=== PATIENT | female | born 1960 | race African-American/Black ===

== ENCOUNTER 2019-07-11 16:33 | Inpatient (IN) ==
[2019-07-11] MEDS ORDERED: 0.9 % Sodium Chloride 500 ML IVC ONE ×2 (16:49→19:43)
[2019-07-11] MEDS ORDERED: 0.9 % Sodium Chloride 500 ML ONE (16:50)
[2019-07-11] MEDS ORDERED: Piperacillin/Tazobactam 3.375 GM in 0.9 % Sodium Chloride Mini Bag 100 ML IVPB ONE (16:53)
--- NOTE | 2019-07-11 17:03 | Emergency Department Note ---
Disposition Clinical Impression: ESRD on dialysis Sepsis Qualifiers: Sepsis type: sepsis due to unspecified organism Sepsis acute organ dysfunction status: unspecified Qualified Code(s): A41.9 - Sepsis, unspecified organism Diabetes mellitus Qualifiers: Diabetes mellitus type: type 2 Diabetes mellitus predatory animal exterminator insulin use: without correction use Diabetes mellitus complication status: with other specified complication Qualified Code(s): E11.69 - Type 2 diabetes mellitus with other specified complication Disposition: Admitted As Inpatient Referrals: NONE,PCP [Primary Care Provider] - Forms: ED Satisfaction Letter Time of Disposition: 21:07 General Adult HPI - General Chief complaint: ED Fever Stated complaint: Infection Time Seen by Provider: 07/11/19 16:47 Source: patient, EMS Mode of arrival: EMS Limitations: no limitations Nursing Notes Reviewed: Yes Vital Signs Reviewed: Yes - History of Present Illness HPI Narrative: 59F with PMHx of DM, HTN and ESRD on dialysis presents from dialysis with general illness and fever after completing dialysis. Patient states she generally does not feel well but cannot describe any symptoms that she is having. She is reported to have a fever of 104 at dialysis today. Patient states that she does make urine and has not had any dysuria or abdominal pain. She denies cough and chest pain as well as dyspnea. She has not been feeling well since Sunday. Pain Scale: 0 - Related Data Home Medications Medication Instructions Recorded Confirmed Atorvastatin 20 mg PO HS 07/11/19 07/11/19 Levothyroxine 50 mcg PO DAILY 07/11/19 07/11/19 Linzess 290 mcg PO DAILY 07/11/19 07/11/19 Metoprolol Succinate 25 mg PO DAILY 07/11/19 07/11/19 Topiramate 25 mg PO BID 07/11/19 07/11/19 Tramadol HCl 50 mg PO Q8HR PRN 07/11/19 07/11/19 amLODIPine 5 mg PO DAILY 07/11/19 07/11/19 Allergies Allergy/AdvReac Type Severity Reaction Status Date / Time No Known Allergies Allergy Verified 06/23/19 06:10 All systems ED: reviewed and negative except as stated. Review of Systems: As Per HPI Constitutional: Reports: fever, weakness. Denies: chills Cardiovascular: Denies: chest pain, palpitations, dyspnea on exertion Respiratory: Denies: cough, dyspnea, wheezes Gastrointestinal: Denies: abdominal pain, nausea, vomiting Genitourinary: Denies: dysuria Musculoskeletal: Denies: back pain Neurological: Denies: headache Endocrine: Reports: fatigue Past Medical History - Past Medical History Attestation: Yes The following information was validated with the patient. Source: patient Medical history: Reports: diabetes, hyperlipidemia, hypertension, renal disease, thyroid disease Psychiatric history: Reports: no psych history - Social History Smoking Status: Never smoker Smokeless Tobacco Status: No Alcohol use: Reports: none Drug use: Reports: none Physical Exam - General Limitations: no limitations General appearance: alert, in no apparent distress, other (somnolent) - Head Head exam: atraumatic, normocephalic - Eye Eye exam: Present: normal appearance, EOMI - Chest Chest inspection: Present: normal inspection, other (dialysis catheter without signs of infection). Absent: tenderness, rash - Respiratory Respiratory exam: Present: normal lung sounds bilaterally. Absent: wheezes - Cardiovascular Cardiovascular exam: Present: normal rhythm, tachycardia - Abdominal Exam Abdominal exam: Present: soft, Non-Tender. Absent: distention, guarding, rebound, rigidity - Extremities Exam Extremities exam: Present: normal inspection. Absent: tenderness, pedal edema - Neurological Exam Neurological exam: Present: alert, oriented X3, other (somnolent) - Psychiatric Psychiatric exam: Present: flat affect - Skin Skin exam: Present: warm, dry, intact Course Vital Signs Temperature 103.3 F H 07/11/19 16:35 Pulse Rate 143 07/11/19 16:35 Respiratory Rate 20 07/11/19 16:35 Blood Pressure 139/92 07/11/19 16:35 O2 Sat by Pulse Oximetry 100 07/11/19 16:35 Temperature 102.3 F H 07/11/19 17:57 Pulse Rate 99 07/11/19 19:57 Respiratory Rate 18 07/11/19 18:32 Blood Pressure 113/77 07/11/19 19:57 O2 Sat by Pulse Oximetry 100 07/11/19 19:57 Oxygen Delivery Oxygen Delivery Room Air Medical Decision Making - MDM Narrative Medical decision making narrative: Patient presents from dialysis with a fever. Sutures criteria were met and we will obtain a septic labs, chest x-ray is and his blood cultures from both peripheral veins and her dialysis catheter. Patient will be started on Bactrim antibiotics and a 500 mL fluid bolus. We will also obtain a flu swab on this patient. 1999 - Pts labs show a mild leukocytosis and lactic acidosis. CXR does not show any acute abnormalities. Awaiting urinalysis at this time. Pt is still febrile and motrin was ordered along with another 500mL bolus. 2019 - pts urine does not show signs of infection. We will admit her for further treatment of her sepsis. 2100 - pt has been accepted by the hospitalist Dr. Rhodes for admission to the hospital. - Medical Records Medical records reviewed: Yes I reviewed the patient's medical records. - Lab Data Lab results reviewed: Yes I reviewed the patient's lab results. Result diagrams: 07/11/19 16:55 07/11/19 16:55 Lab Results 07/11/19 07/11/19 07/11/19 Range/Units 16:55 16:55 16:55 WBC 12.4 H (4.3-11.1) K/mcL RBC 3.61 L (3.82-4.97) M/mcL Hgb 10.9 L (11.5-15.4) g/dL Hct 34.0 L (35.3-44.9) % MCV 94.2 (83.0-100.0) fL MCH 30.2 (28.0-33.3) pg MCHC 32.1 (31.6-35.5) g/dL RDW 16.4 H (11.5-14.5) % Plt Count 121 L (140-400) K/mcL MPV 10.7 (9.4-12.4) fL Immature Gran % 0.5 (0-4) % Seg Neutrophils % 84.1 % Lymphocytes % 8.1 % Monocytes % 6.8 % Eosinophils % 0.3 % Basophils % 0.2 % Neutrophils # 10.4 H (1.6-8.9) K/mcL Lymphocytes # 1.0 (0.6-4.6) K/mcL Monocytes # 0.8 (0.0-1.3) K/mcL Eosinophils # 0.0 (0.0-0.6) K/mcL Basophils # 0.0 (0.0-0.2) K/mcL PT 12.7 H (9.4-12.1) Seconds INR 1.1 Sodium 134 L (136-145) mEq/L Potassium 4.2 (3.5-5.1) mEq/L Chloride 95 L (98-107) mEq/L Carbon Dioxide 24 (23-29) mEq/L BUN 13 (8-23) mg/dL Creatinine 4.30 H (0.60-1.20) mg/dL Est GFR ( Amer) 13 L (> 60) Est GFR (Non-Af Amer) 10 L (> 60) BUN/Creatinine Ratio 3 L (6-26) Glucose 215 H (70-105) mg/dL Calculated Osmolality 285 (280-300) Lactic Acid (0.5-2.2) mmol/L Calcium 9.1 (8.6-10.3) mg/dL Phosphorus 2.4 L (2.7-4.5) mg/dL Magnesium 1.6 (1.6-2.6) mg/dL Total Bilirubin 0.5 (0.3-1.0) mg/dL Direct Bilirubin 0.0 (0.0-0.2) mg/dL Indirect Bilirubin 0.5 (0.0-1.2) mg/dL AST 21 (13-39) Units/L ALT 15 (7-52) Units/L Alkaline Phosphatase 51 (34-104) Units/L Troponin I < 0.03 (< 0.04) ng/mL Serum Total Protein 8.1 (6.4-8.9) g/dL Albumin 4.3 (3.5-5.7) g/dL Globulin 3.8 H (2.4-3.5) g/dL Albumin/Globulin Ratio 1.1 (1.1-2.2) Urine Color (Yellow) Urine Clarity (Clear) Urine pH (5.0-8.0) pH Units Ur Specific [place] (1.010-1.025) Urine Protein (Neg-Trace) mg/dL Urine Glucose (UA) (Normal) mg/dL Urine Ketones (Negative) mg/dL Urine Blood (Negative) Urine Nitrite (Negative) Urine Bilirubin (Negative) Urine Urobilinogen (Normal) mg/dL Ur Leukocyte Esterase (Negative) Urine Microscopic RBC (0-3) per hpf Urine Microscopic WBC (0-3) per hpf Ur Squamous Epith Cells (None-Few) per lpf Urine Bacteria (None-Few) per hpf Hyaline Casts (None-Few) per lpf Ur Culture Indicated? (NO) 07/11/19 07/11/19 Range/Units 16:55 20:02 WBC (4.3-11.1) K/mcL RBC (3.82-4.97) M/mcL Hgb (11.5-15.4) g/dL Hct (35.3-44.9) % MCV (83.0-100.0) fL MCH (28.0-33.3) pg MCHC (31.6-35.5) g/dL RDW (11.5-14.5) % Plt Count (140-400) K/mcL MPV (9.4-12.4) fL Immature Gran % (0-4) % Seg Neutrophils % % Lymphocytes % % Monocytes % % Eosinophils % % Basophils % % Neutrophils # (1.6-8.9) K/mcL Lymphocytes # (0.6-4.6) K/mcL Monocytes # (0.0-1.3) K/mcL Eosinophils # (0.0-0.6) K/mcL Basophils # (0.0-0.2) K/mcL PT (9.4-12.1) Seconds INR Sodium (136-145) mEq/L Potassium (3.5-5.1) mEq/L Chloride (98-107) mEq/L Carbon Dioxide (23-29) mEq/L BUN (8-23) mg/dL Creatinine (0.60-1.20) mg/dL Est GFR ( Amer) (> 60) Est GFR (Non-Af Amer) (> 60) BUN/Creatinine Ratio (6-26) Glucose (70-105) mg/dL Calculated Osmolality (280-300) Lactic Acid 2.8 H (0.5-2.2) mmol/L Calcium (8.6-10.3) mg/dL Phosphorus (2.7-4.5) mg/dL Magnesium (1.6-2.6) mg/dL Total Bilirubin (0.3-1.0) mg/dL Direct Bilirubin (0.0-0.2) mg/dL Indirect Bilirubin (0.0-1.2) mg/dL AST (13-39) Units/L ALT (7-52) Units/L Alkaline Phosphatase (34-104) Units/L Troponin I (< 0.04) ng/mL Serum Total Protein (6.4-8.9) g/dL Albumin (3.5-5.7) g/dL Globulin (2.4-3.5) g/dL Albumin/Globulin Ratio (1.1-2.2) Urine Color Yellow (Yellow) Urine Clarity Clear (Clear) Urine pH 7.5 (5.0-8.0) pH Units Ur Specific [place] 1.014 (1.010-1.025) Urine Protein >=300 H (Neg-Trace) mg/dL Urine Glucose (UA) 250 H (Normal) mg/dL Urine Ketones Negative (Negative) mg/dL Urine Blood Trace H (Negative) Urine Nitrite Negative (Negative) Urine Bilirubin Negative (Negative) Urine Urobilinogen Normal (Normal) mg/dL Ur Leukocyte Esterase Negative (Negative) Urine Microscopic RBC 0-3 (0-3) per hpf Urine Microscopic WBC 0-3 (0-3) per hpf Ur Squamous Epith Cells Many H (None-Few) per lpf Urine Bacteria None Seen (None-Few) per hpf Hyaline Casts None Seen (None-Few) per lpf Ur Culture Indicated? NO (NO) - Radiology Data Radiology results reviewed: Yes I reviewed the patient's radiology results. - EKG Data EKG #1 EKG attestation: Yes I reviewed and interpreted this EKG. EKG results narrative: EKG obtained at 1649 on 07/11/2019 Heart rate 143 beats per minute, AK interval 143, QRS duration 77, QT 271, QTC 420 Sinus tachycardia without any ST segment elevations or depressions. There is baseline wander in several leads. No other acute abnormalities on this EKG. No old EKG for comparison at this time.
[2019-07-11 17:15] LABS: Basophils % 0.2 %; Eosinophils % 0.3 %; Hemoglobin 10.9 g/dL (11.5-15.4); Immature Granulocytes % 0.5 % (0-4); Lymphocytes % 8.1 %; Mean Corpuscular HGB Conc 32.1 g/dL (31.6-35.5); Mean Corpuscular Hemoglobin 30.2 pg (28.0-33.3); Mean Corpuscular Volume 94.2 fL (83.0-100.0); Mean Platelet Volume 10.7 fL (9.4-12.4); Monocytes # 0.8 K/mcL (0.0-1.3); Monocytes % 6.8 %; Neutrophils # 10.4 K/mcL (1.6-8.9); Platelet Count 121 K/mcL (140-400); Red Blood Count 3.61 M/mcL (3.82-4.97); Red Cell Distribution Width 16.4 % (11.5-14.5); Segmented Neutrophils % 84.1 %; White Blood Count 12.4 K/mcL (4.3-11.1)
[2019-07-11 17:25] LABS: INR 1.1; Prothrombin Time 12.7 Seconds (9.4-12.1)
[2019-07-11 17:40] LABS: Alanine Aminotransferase 15 Units/L (7-52); Albumin 4.3 g/dL (3.5-5.7); Albumin/Globulin Ratio 1.1 (1.1-2.2); Alkaline Phosphatase 51 Units/L (34-104); Aspartate Amino Transferase 21 Units/L (13-39); BUN/Creatinine Ratio 3 (6-26); Bilirubin,Indirect 0.5 mg/dL (0.0-1.2); Bilirubin,Total 0.5 mg/dL (0.3-1.0); Blood Urea Nitrogen 13 mg/dL (8-23); Calcium 9.1 mg/dL (8.6-10.3); Carbon Dioxide 24 mEq/L (23-29); Chloride 95 mEq/L (98-107); Globulin 3.8 g/dL (2.4-3.5); Glucose 215 mg/dL (70-105); Magnesium 1.6 mg/dL (1.6-2.6); Osmolality,Calculated 285 (280-300); Phosphorous 2.4 mg/dL (2.7-4.5); Potassium 4.2 mEq/L (3.5-5.1); Sodium 134 mEq/L (136-145); Total Protein 8.1 g/dL (6.4-8.9); Troponin I < 0.03 ng/mL (< 0.04); eGFR For African Americans 13 (> 60); eGFR For Non-African Americans 10 (> 60)
[2019-07-11] MEDS ORDERED: Morphine Sulfate 2 MG/ML SYRINGE IVP ONE (18:01)
--- NOTE | 2019-07-11 19:06 | Emergency Department Note ---
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 Diabetes mellitus complication status: with other specified complication Qualified Code(s): E11.69 - Type 2 diabetes mellitus with other specified complication Disposition: Admitted As Inpatient Time of Disposition: 21:07 General Adult HPI - General Chief complaint: ED Fever Stated complaint: Infection Time Seen by Provider: 07/11/19 16:47 Source: patient, EMS Mode of arrival: EMS Limitations: no limitations - History of Present Illness Pain Scale: 0 - Related Data Home Medications Medication Instructions Recorded Confirmed Atorvastatin Calcium [Lipitor] 20 mg PO DAILY 07/12/19 07/12/19 B Complex W-C No.20/Folic Acid 1 mg PO MOWEFR 07/12/19 07/12/19 [Virt-Caps Softgel] Calcitriol [Rocaltrol] 0.25 mcg PO DAILY 07/12/19 07/12/19 Glucagon,Human Recombinant 1 mg IM ONCE PRN 07/12/19 07/12/19 [Glucagen] Insulin LISPRO [Humalog Kwikpen 0 unit SQ TIDWM PRN 07/12/19 07/12/19 U-100] Levothyroxine [Synthroid] 50 mcg PO QAM 07/12/19 07/12/19 Linaclotide [Linzess] 290 mcg PO DAILY 07/12/19 07/12/19 Metoprolol Succinate [Toprol Xl] 25 mg PO DAILY 07/12/19 07/12/19 Topiramate [Topamax] 25 mg PO Q12H 07/12/19 07/12/19 Tramadol HCl [Ultram] 50 mg PO Q8H PRN 07/12/19 07/12/19 amLODIPine [Norvasc] 5 mg PO DAILY 07/12/19 07/12/19 Allergies Allergy/AdvReac Type Severity Reaction Status Date / Time No Known Allergies Allergy Verified 06/23/19 06:10 Constitutional: Reports: fever, weakness. Denies: chills Cardiovascular: Denies: chest pain, palpitations, dyspnea on exertion Respiratory: Denies: cough, dyspnea, wheezes Gastrointestinal: Denies: abdominal pain, nausea, vomiting Genitourinary: Denies: dysuria Musculoskeletal: Denies: back pain Neurological: Denies: headache Endocrine: Reports: fatigue Past Medical History - Past Medical History Medical history: Reports: diabetes, hyperlipidemia, hypertension, renal disease, thyroid disease Psychiatric history: Reports: no psych history - Social History Smoking Status: Never smoker Smokeless Tobacco Status: No Alcohol use: Reports: none Drug use: Reports: none Physical Exam - General Limitations: no limitations General appearance: alert, in no apparent distress, other (somnolent) Course Vital Signs Temperature 103.3 F H 07/11/19 16:35 Pulse Rate 143 07/11/19 16:35 Respiratory Rate 20 07/11/19 16:35 Blood Pressure 139/92 07/11/19 16:35 O2 Sat by Pulse Oximetry 100 07/11/19 16:35 Temperature 102.9 F H 07/12/19 18:58 Pulse Rate 151 07/12/19 18:40 Respiratory Rate 34 07/12/19 18:40 Blood Pressure 155/86 07/12/19 18:40 O2 Sat by Pulse Oximetry 98 07/12/19 18:40 Oxygen Delivery Oxygen Delivery Room Air Medical Decision Making - Lab Data Result diagrams: 07/12/19 03:10 07/12/19 03:10 Lab Results 07/11/19 07/11/19 07/11/19 Range/Units 16:55 16:55 16:55 WBC 12.4 H (4.3-11.1) K/mcL RBC 3.61 L (3.82-4.97) M/mcL Hgb 10.9 L (11.5-15.4) g/dL Hct 34.0 L (35.3-44.9) % MCV 94.2 (83.0-100.0) fL MCH 30.2 (28.0-33.3) pg MCHC 32.1 (31.6-35.5) g/dL RDW 16.4 H (11.5-14.5) % Plt Count 121 L (140-400) K/mcL MPV 10.7 (9.4-12.4) fL Immature Gran % 0.5 (0-4) % Seg Neutrophils % 84.1 % Lymphocytes % 8.1 % Monocytes % 6.8 % Eosinophils % 0.3 % Basophils % 0.2 % Neutrophils # 10.4 H (1.6-8.9) K/mcL Lymphocytes # 1.0 (0.6-4.6) K/mcL Monocytes # 0.8 (0.0-1.3) K/mcL Eosinophils # 0.0 (0.0-0.6) K/mcL Basophils # 0.0 (0.0-0.2) K/mcL PT 12.7 H (9.4-12.1) Seconds INR 1.1 Sodium 134 L (136-145) mEq/L Potassium 4.2 (3.5-5.1) mEq/L Chloride 95 L (98-107) mEq/L Carbon Dioxide 24 (23-29) mEq/L BUN 13 (8-23) mg/dL Creatinine 4.30 H (0.60-1.20) mg/dL Est GFR ( Amer) 13 L (> 60) Est GFR (Non-Af Amer) 10 L (> 60) BUN/Creatinine Ratio 3 L (6-26) Glucose 215 H (70-105) mg/dL Calculated Osmolality 285 (280-300) Lactic Acid (0.5-2.2) mmol/L Calcium 9.1 (8.6-10.3) mg/dL Phosphorus 2.4 L (2.7-4.5) mg/dL Magnesium 1.6 (1.6-2.6) mg/dL Total Bilirubin 0.5 (0.3-1.0) mg/dL Direct Bilirubin 0.0 (0.0-0.2) mg/dL Indirect Bilirubin 0.5 (0.0-1.2) mg/dL AST 21 (13-39) Units/L ALT 15 (7-52) Units/L Alkaline Phosphatase 51 (34-104) Units/L Troponin I < 0.03 (< 0.04) ng/mL Serum Total Protein 8.1 (6.4-8.9) g/dL Albumin 4.3 (3.5-5.7) g/dL Globulin 3.8 H (2.4-3.5) g/dL Albumin/Globulin Ratio 1.1 (1.1-2.2) Urine Color (Yellow) Urine Clarity (Clear) Urine pH (5.0-8.0) pH Units Ur Specific [place] (1.010-1.025) Urine Protein (Neg-Trace) mg/dL Urine Glucose (UA) (Normal) mg/dL Urine Ketones (Negative) mg/dL Urine Blood (Negative) Urine Nitrite (Negative) Urine Bilirubin (Negative) Urine Urobilinogen (Normal) mg/dL Ur Leukocyte Esterase (Negative) Urine Microscopic RBC (0-3) per hpf Urine Microscopic WBC (0-3) per hpf Ur Squamous Epith Cells (None-Few) per lpf Urine Bacteria (None-Few) per hpf Hyaline Casts (None-Few) per lpf Ur Culture Indicated? (NO) A. baumannii (PCR) (Not Detect) Cristiana albicans (PCR) (Not Detect) C. glabrata (PCR) (Not Detect) C. krusei (PCR) (Not Detect) C. parapsilosis (PCR) (Not Detect) C. tropicalis (PCR) (Not Detect) Enterobacteriac sp PCR (Not Detect) E. cloacae complex PCR (Not Detect) Enterococcus sp PCR (Not Detect) E. coli (PCR) (Not Detect) H. influenzae (PCR) (Not Detect) Klebsiella oxytoca PCR (Not Detect) Klebsiella pneumoniae (Not Detect) List. monocytogenes PCR (Not Detect) N. meningitidis (PCR) (Not Detect) Proteus species (PCR) (Not Detect) Serratia marcescens PCR (Not Detect) Staphylococcus sp PCR (Not Detect) Staph aureus (PCR) (Not Detect) mecA-Methicil Res Gene (Not Detect) Streptococcus sp PCR (Not Detect) Group A Strep DNA (Not Detect) Group B Strep (PCR) (Not Detect) Strep pneumoniae (PCR) (Not Detect) P. aeruginosa (PCR) (Not Detect) [place]/B-Vanco Res Genes (Not Detect) KPC (blaKPC) Detect PCR (Not Detect) 07/11/19 07/11/19 07/11/19 Range/Units 16:55 16:55 20:02 WBC (4.3-11.1) K/mcL RBC (3.82-4.97) M/mcL Hgb (11.5-15.4) g/dL Hct (35.3-44.9) % MCV (83.0-100.0) fL MCH (28.0-33.3) pg MCHC (31.6-35.5) g/dL RDW (11.5-14.5) % Plt Count (140-400) K/mcL MPV (9.4-12.4) fL Immature Gran % (0-4) % Seg Neutrophils % % Lymphocytes % % Monocytes % % Eosinophils % % Basophils % % Neutrophils # (1.6-8.9) K/mcL Lymphocytes # (0.6-4.6) K/mcL Monocytes # (0.0-1.3) K/mcL Eosinophils # (0.0-0.6) K/mcL Basophils # (0.0-0.2) K/mcL PT (9.4-12.1) Seconds INR Sodium (136-145) mEq/L Potassium (3.5-5.1) mEq/L Chloride (98-107) mEq/L Carbon Dioxide (23-29) mEq/L BUN (8-23) mg/dL Creatinine (0.60-1.20) mg/dL Est GFR ( Amer) (> 60) Est GFR (Non-Af Amer) (> 60) BUN/Creatinine Ratio (6-26) Glucose (70-105) mg/dL Calculated Osmolality (280-300) Lactic Acid 2.8 H (0.5-2.2) mmol/L Calcium (8.6-10.3) mg/dL Phosphorus (2.7-4.5) mg/dL Magnesium (1.6-2.6) mg/dL Total Bilirubin (0.3-1.0) mg/dL Direct Bilirubin (0.0-0.2) mg/dL Indirect Bilirubin (0.0-1.2) mg/dL AST (13-39) Units/L ALT (7-52) Units/L Alkaline Phosphatase (34-104) Units/L Troponin I (< 0.04) ng/mL Serum Total Protein (6.4-8.9) g/dL Albumin (3.5-5.7) g/dL Globulin (2.4-3.5) g/dL Albumin/Globulin Ratio (1.1-2.2) Urine Color Yellow (Yellow) Urine Clarity Clear (Clear) Urine pH 7.5 (5.0-8.0) pH Units Ur Specific [place] 1.014 (1.010-1.025) Urine Protein >=300 H (Neg-Trace) mg/dL Urine Glucose (UA) 250 H (Normal) mg/dL Urine Ketones Negative (Negative) mg/dL Urine Blood Trace H (Negative) Urine Nitrite Negative (Negative) Urine Bilirubin Negative (Negative) Urine Urobilinogen Normal (Normal) mg/dL Ur Leukocyte Esterase Negative (Negative) Urine Microscopic RBC 0-3 (0-3) per hpf Urine Microscopic WBC 0-3 (0-3) per hpf Ur Squamous Epith Cells Many H (None-Few) per lpf Urine Bacteria None Seen (None-Few) per hpf Hyaline Casts None Seen (None-Few) per lpf Ur Culture Indicated? NO (NO) A. baumannii (PCR) Not Detected (Not Detect) Cristiana albicans (PCR) Not Detected (Not Detect) C. glabrata (PCR) Not Detected (Not Detect) C. krusei (PCR) Not Detected (Not Detect) C. parapsilosis (PCR) Not Detected (Not Detect) C. tropicalis (PCR) Not Detected (Not Detect) Enterobacteriac sp PCR Not Detected (Not Detect) E. cloacae complex PCR Not Detected (Not Detect) Enterococcus sp PCR Not Detected (Not Detect) E. coli (PCR) Not Detected (Not Detect) H. influenzae (PCR) Not Detected (Not Detect) Klebsiella oxytoca PCR Not Detected (Not Detect) Klebsiella pneumoniae Not Detected (Not Detect) List. monocytogenes PCR Not Detected (Not Detect) N. meningitidis (PCR) Not Detected (Not Detect) Proteus species (PCR) Not Detected (Not Detect) Serratia marcescens PCR Not Detected (Not Detect) Staphylococcus sp PCR DETECTED A (Not Detect) Staph aureus (PCR) Not Detected (Not Detect) mecA-Methicil Res Gene Not Detected (Not Detect) Streptococcus sp PCR Not Detected (Not Detect) Group A Strep DNA Not Detected (Not Detect) Group B Strep (PCR) Not Detected (Not Detect) Strep pneumoniae (PCR) Not Detected (Not Detect) P. aeruginosa (PCR) Not Detected (Not Detect) [place]/B-Vanco Res Genes N/A (Not Detect) KPC (blaKPC) Detect PCR N/A (Not Detect) 07/11/19 Range/Units 21:08 WBC (4.3-11.1) K/mcL RBC (3.82-4.97) M/mcL Hgb (11.5-15.4) g/dL Hct (35.3-44.9) % MCV (83.0-100.0) fL MCH (28.0-33.3) pg MCHC (31.6-35.5) g/dL RDW (11.5-14.5) % Plt Count (140-400) K/mcL MPV (9.4-12.4) fL Immature Gran % (0-4) % Seg Neutrophils % % Lymphocytes % % Monocytes % % Eosinophils % % Basophils % % Neutrophils # (1.6-8.9) K/mcL Lymphocytes # (0.6-4.6) K/mcL Monocytes # (0.0-1.3) K/mcL Eosinophils # (0.0-0.6) K/mcL Basophils # (0.0-0.2) K/mcL PT (9.4-12.1) Seconds INR Sodium (136-145) mEq/L Potassium (3.5-5.1) mEq/L Chloride (98-107) mEq/L Carbon Dioxide (23-29) mEq/L BUN (8-23) mg/dL Creatinine (0.60-1.20) mg/dL Est GFR ( Amer) (> 60) Est GFR (Non-Af Amer) (> 60) BUN/Creatinine Ratio (6-26) Glucose (70-105) mg/dL Calculated Osmolality (280-300) Lactic Acid 1.1 (0.5-2.2) mmol/L Calcium (8.6-10.3) mg/dL Phosphorus (2.7-4.5) mg/dL Magnesium (1.6-2.6) mg/dL Total Bilirubin (0.3-1.0) mg/dL Direct Bilirubin (0.0-0.2) mg/dL Indirect Bilirubin (0.0-1.2) mg/dL AST (13-39) Units/L ALT (7-52) Units/L Alkaline Phosphatase (34-104) Units/L Troponin I (< 0.04) ng/mL Serum Total Protein (6.4-8.9) g/dL Albumin (3.5-5.7) g/dL Globulin (2.4-3.5) g/dL Albumin/Globulin Ratio (1.1-2.2) Urine Color (Yellow) Urine Clarity (Clear) Urine pH (5.0-8.0) pH Units Ur Specific [place] (1.010-1.025) Urine Protein (Neg-Trace) mg/dL Urine Glucose (UA) (Normal) mg/dL Urine Ketones (Negative) mg/dL Urine Blood (Negative) Urine Nitrite (Negative) Urine Bilirubin (Negative) Urine Urobilinogen (Normal) mg/dL Ur Leukocyte Esterase (Negative) Urine Microscopic RBC (0-3) per hpf Urine Microscopic WBC (0-3) per hpf Ur Squamous Epith Cells (None-Few) per lpf Urine Bacteria (None-Few) per hpf Hyaline Casts (None-Few) per lpf Ur Culture Indicated? (NO) A. baumannii (PCR) (Not Detect) Cristiana albicans (PCR) (Not Detect) C. glabrata (PCR) (Not Detect) C. krusei (PCR) (Not Detect) C. parapsilosis (PCR) (Not Detect) C. tropicalis (PCR) (Not Detect) Enterobacteriac sp PCR (Not Detect) E. cloacae complex PCR (Not Detect) Enterococcus sp PCR (Not Detect) E. coli (PCR) (Not Detect) H. influenzae (PCR) (Not Detect) Klebsiella oxytoca PCR (Not Detect) Klebsiella pneumoniae (Not Detect) List. monocytogenes PCR (Not Detect) N. meningitidis (PCR) (Not Detect) Proteus species (PCR) (Not Detect) Serratia marcescens PCR (Not Detect) Staphylococcus sp PCR (Not Detect) Staph aureus (PCR) (Not Detect) mecA-Methicil Res Gene (Not Detect) Streptococcus sp PCR (Not Detect) Group A Strep DNA (Not Detect) Group B Strep (PCR) (Not Detect) Strep pneumoniae (PCR) (Not Detect) P. aeruginosa (PCR) (Not Detect) [place]/B-Vanco Res Genes (Not Detect) KPC (blaKPC) Detect PCR (Not Detect) Attestation Statement - Attestation Attestation: I examined this patient and my medical decision-making was reviewed with the Resident Physician. I agree with the documented findings, disposition and treatment plan as described except to the extent set forth below. Patient 59-year-old female that presents to the emergency department with chief complaint of fever and generalized weakness. The patient is end-stage renal disease patient on dialysis that completed her run at dialysis today and started having a fast heart rate and also had a temperature up to 103 at the dialysis center. Patient states she is having generalized body aches and generalized malaise. Physical exam patient is awake alert appears in mild distress. Patient is able to answer questions but appears extremely weak. Medical decision management patient will be evaluated from a septic standpoint patient will receive hydration pain control antipyretics and will be started on broad-spectrum antibiotics. The patient did receive blood cultures in the emergency department and will be evaluated with a lactic acid. The plan is to admit the patient to the hospital for further treatment. I personally supervised and was present for the [place]/critical portions of the following procedures completed by the resident:EKG.
[2019-07-11] MEDS ORDERED: Ibuprofen 600 MG TABLET PO ONE (19:36)
[2019-07-11 20:15] LABS: Bilirubin,Urine Negative (Negative); Blood,Urine Trace (Negative); Clarity,Urine Clear (Clear); Color,Urine Yellow (Yellow); Glucose,Urine (UA) 250 mg/dL (Normal); Ketones,Urine Negative (Negative); Leukocyte Esterase,Urine Negative (Negative); Nitrite,Urine Negative (Negative); PH,Urine 7.5 pH Units (5.0-8.0); Protein,Urine >=300 mg/dL (Neg-Trace); Specific Gravity,Urine 1.014 (1.010-1.025); Urobilinogen,Urine Normal (Normal)
[2019-07-11 20:18] LABS: Bacteria,Urine None Seen per hpf (None-Few); Hyaline Casts,Urine None Seen per lpf (None-Few); RBC,Urine 0-3 per hpf (0-3); Squamous Epithelial Cell,Urine Many per lpf (None-Few); WBC,Urine 0-3 per hpf (0-3)
[2019-07-11] MEDS ORDERED: Naloxone 0.4 MG/ML INJ IVP PRN (23:44)
[2019-07-11] MEDS ORDERED: *HR* Dextrose 50 % in Water (Syg) 50 ML SYRINGE IVP PRN (23:47)
[2019-07-11] MEDS ORDERED: D5% in Water 1,000 ML IVC PRN (23:47)
[2019-07-11] MEDS ORDERED: Dextrose Gel 15 GM/37.5 ML TUBE PO PRN ×2 (23:47)
--- NOTE | 2019-07-11 23:51 | Internal Med History&Physical ---
Date of Encounter: 07/11/19 Time of Encounter: 22:25 Internal Medicine - H&P: HPI Chief complaint: Sepsis Admitted From: Emergency Dept Plans for Post Hospital Care: Home History of present illness: Ms. Zimmerman is a 59 year old female Patient presented to the ER with fever after completing her dialysis session. She has been on dialysis for about 6 months. Patient does not recall the events leading up to hospitalization, but according to the emergency department notes she developed generalized illness and fever after completing dialysis. She had reported fever of 104 at the dialysis center. She has not been feeling well for the last 2 days. Emergency department vital signs: Temperature 103.3, pulse 143, respiratory rate 20, blood pressure 139/92, oxygen saturation 100% on room air CBC: White count 12.4, hemoglobin 10.9, platelets 121. BMP: Sodium 134, potassium 4.2, chloride 95, bicarbonate 24, creatinine 4.30, BUN 13, glucose 215. Estimated GFR 13 Lactic acid 2.8 liver function tests within normal limits Initial troponin undetectable Urinalysis: greater than 300 protein, 250 glucose, many squamous cells, negative nitrite and negative leukocyte esterase no urine bacteria seen. Chest x-ray showed no acute findings EKG: Sinus tachycardia, rate 143, QTC [address] elevation or depression. In the ER patient was given a total of 500cc bolus of fluids, blood and urine cultures were drawn. Patient was started on vancomycin and Zosyn. She was admitted to the hospital for further management. Upon my evaluation, patient is resting comfortably in bed in no acute distress. She states that she does have a headache, but denies vision changes and neck pain. She also denies chest pain, abdominal pain, nausea, vomiting, diarrhea and constipation she also denies shortness of breath. She has a history of diabetes and had been on peritoneal dialysis prior to hemodialysis. She still has her peritoneal dialysis access. She says that she is scheduled to have it removed on the 18 of this month. She currently gets dialysis through a access site in her right upper chest. She is a full code. Past Med Surg Social Fam HX - Past Medical History Medical history: diabetes, hyperlipidemia, hypertension, renal disease, thyroid disease Psychiatric history: no psych history - Past Surgical History Surgical History: cholecystectomy Additional surgical history: permicath, PD cath, hysterectomy - Social History Smoking Status: Never smoker Smokeless Tobacco Status: No Alcohol use: none Drug use: none - Family History Sister Hx Family Endocrine Disorder: Yes (ESRD, diabetes) Internal Medicine - H&P: Meds Atorvastatin 20 mg PO HS 07/11/19 [History] Levothyroxine 50 mcg PO DAILY 07/11/19 [History] Linzess 290 mcg PO DAILY 07/11/19 [History] Metoprolol Succinate 25 mg PO DAILY 07/11/19 [History] Topiramate 25 mg PO BID 07/11/19 [History] Tramadol HCl 50 mg PO Q8HR PRN 07/11/19 [History] amLODIPine 5 mg PO DAILY 07/11/19 [History] Allergy/AdvReac Type Severity Reaction Status Date / Time No Known Allergies Allergy Verified 06/23/19 06:10 All Systems PM: A 10-system review of systems was performed and is negative for pertinent findings except as documented above in the HPI. - Constitutional Vitals: Temp Pulse Resp BP Pulse Ox 98.6 F 87 16 89/61 96 07/11/19 22:25 07/11/19 22:25 07/11/19 22:25 07/11/19 22:25 07/11/19 22:25 General appearance: Present: cooperative, A&O X 3, pleasant, no acute distress, answers questions appropriately Exam: - - Head Head exam: Present: normal inspection - Eye Eye exam: Present: EOMI, normal appearance - Neck Neck exam general surgery: Present: full ROM. Absent: tenderness - Respiratory Respiratory exam: Present: CTAB. Absent: rales, respiratory distress, rhonchi, wheezes Additional comments: Right upper chest HD catheter site has some yellow discoloration on the dressing, non-tender, no erythema - Cardiovascular Cardiovascular exam: Present: RRR. Absent: diastolic murmur, systolic murmur - GI/Abdominal GI/Abdominal exam: Present: normal bowel sounds, soft. Absent: tenderness Additional comments: PD catheter in left abdomen, dried secretions with foul odor. Dressing changed by floor nurse. - Extremities Exam Extremities exam: Present: warm, radial pulses palpable and symmetrical. Absent: calf tenderness, pedal edema, tenderness - Neurological Exam Neurological exam: Present: no focal deficits, strengths equal and symetr throughout. Absent: motor sensory deficit, facial droop, speech deficit - Skin Skin exam: Present: dry, normal color, warm Internal Med - H&P Results - Labs CBC & Chem 7: 07/11/19 16:55 07/11/19 16:55 Labs: Short CBC 07/11/19 Range/Units 16:55 WBC 12.4 H (4.3-11.1) K/mcL Hgb 10.9 L (11.5-15.4) g/dL Hct 34.0 L (35.3-44.9) % Plt Count 121 L (140-400) K/mcL Neutrophils # 10.4 H (1.6-8.9) K/mcL BMP 07/11/19 16:55 Sodium 134 L Potassium 4.2 Chloride 95 L Carbon Dioxide 24 BUN 13 Creatinine 4.30 H Glucose 215 H Calcium 9.1 Cardiac Enzymes 07/11/19 Range/Units 16:55 Troponin I < 0.03 (< 0.04) ng/mL Liver Function 07/11/19 Range/Units 16:55 Total Bilirubin 0.5 (0.3-1.0) mg/dL Direct Bilirubin 0.0 (0.0-0.2) mg/dL AST 21 (13-39) Units/L ALT 15 (7-52) Units/L Alkaline Phosphatase 51 (34-104) Units/L Albumin 4.3 (3.5-5.7) g/dL Urine 07/11/19 Range/Units 20:02 Urine Color Yellow (Yellow) Urine Clarity Clear (Clear) Urine pH 7.5 (5.0-8.0) pH Units Ur Specific [place] 1.014 (1.010-1.025) Urine Protein >=300 H (Neg-Trace) mg/dL Urine Glucose (UA) 250 H (Normal) mg/dL - Impressions ITS Impressions Chest X-Ray 07/11/19 16:52 IMPRESSION: No acute findings D/ / Eladia Solis MD / Eladia Solis MD Interpreting Provider: Eladia Solis MD - Assessment and Plan (1) Sepsis Current Visit: Yes Status: Acute Assessment and plan: Likely secondary to dialysis site infections. The peritoneal dialysis site in particular had what appeared to be dried discharge on the dressing and also had a foul odor. Unfortunately no material available for culture. The dressing has been replaced. Will consult general surgery for potential removal. Patient was started on IV antibiotics in the emergency department. Patient no longer meeting sepsis criteria, last temperature was 98.2, with a blood pressure 89/60 and a pulse of 70. Lactic acid also improved to 1.1. Follow-up Gen. surgery recommendations Continue IV antibiotics Follow-up blood cultures Monitor for worsening signs of infection Qualifiers: Sepsis type: sepsis due to unspecified organism Sepsis acute organ dysfunction status: unspecified Qualified Code(s): A41.9 - Sepsis, unspecified organism (2) Headache Current Visit: Yes Status: Acute Assessment and plan: Patient stated that she did have headache. She was given morphine in the emergency department. Pain management as needed Qualifiers: Headache type: unspecified Headache chronicity pattern: acute headache Intractability: not intractable Qualified Code(s): R51 - Headache (3) Diabetes mellitus Current Visit: Yes Status: Acute Assessment and plan: Patient is not an insulin dependent diabetic Monitor sugars Q6H Diabetic diet/ NPO after midnight Low dose insulin sliding scale as needed Hold home meds. Qualifiers: Diabetes mellitus type: type 2 Diabetes mellitus buttermaker continuous churn insulin use: without buttermaker continuous churn use Diabetes mellitus complication status: with other specified complication Qualified Code(s): E11.69 - Type 2 diabetes mellitus with other specified complication (4) ESRD on dialysis Current Visit: Yes Status: Acute Assessment and plan: Dialysis sunday, sunday and sunday. Nephrology consult (5) DVT prophylaxis Current Visit: Yes Status: Acute Assessment and plan: SCDs - Time Spent With Patient Total time spent is greater than 50% in coordination of care (as documented) at patient's floor/unit and/or counseling patient: Greater than 35 minutes
[2019-07-12] MEDS: Insulin LISPRO 300 UNITS/3 ML VIAL SQ SCH ×4 (00:44→17:37)
[2019-07-12 03:40] LABS: Hematocrit 29.1 % (35.3-44.9); Mean Corpuscular HGB Conc 31.3 g/dL (31.6-35.5); Mean Corpuscular Hemoglobin 29.9 pg (28.0-33.3); Mean Corpuscular Volume 95.7 fL (83.0-100.0); Platelet Count 110 K/mcL (140-400); Red Blood Count 3.04 M/mcL (3.82-4.97); Red Cell Distribution Width 16.6 % (11.5-14.5); White Blood Count 11.6 K/mcL (4.3-11.1)
[2019-07-12 03:42] LABS: Hemoglobin 9.1 g/dL (11.5-15.4)
[2019-07-12 04:00] LABS: Albumin 3.6 g/dL (3.5-5.7); Albumin/Globulin Ratio 1.1 (1.1-2.2); Bilirubin,Total 0.3 mg/dL (0.3-1.0); Calcium 8.4 mg/dL (8.6-10.3); Globulin 3.4 g/dL (2.4-3.5); Magnesium 1.8 mg/dL (1.6-2.6); Phosphorous 5.9 mg/dL (2.7-4.5); Potassium 5.1 mEq/L (3.5-5.1)
[2019-07-12] MEDS: Piperacillin/Tazobactam 3.375 GM in 0.9 % Sodium Chloride Mini Bag 100 ML IVPB SCH ×2 (05:49→17:38)
--- NOTE | 2019-07-12 08:35 | AcuteCare Surgery Consult Note ---
Date of Encounter: 07/12/19 Time of Encounter: 08:00 Assessment and Plan (1) Peritoneal dialysis catheter exit site infection Current Visit: Yes Status: Acute The patient has fever of unknown origin and a peritoneal dialysis catheter that is no longer being used. The primary hospitalist team has requested removal of the catheter. The examination the catheter fails to identify any areas of infection. She does have some crusting at the site of catheter exit, however, this is an expected finding for Silastic catheter placement through the skin. Since the patient has fever of unknown origin and the peritoneal dialysis catheter is not being utilized I discussed removal with the patient. The patient is highly motivated to have the catheter removed. We will schedule peritoneal dialysis catheter removal tomorrow in the main operating room. Qualifiers: Encounter type: initial encounter Qualified Code(s): T85.71XA - Infection and inflammatory reaction due to peritoneal dialysis catheter, initial encounter History of Present Illness Consult date: 07/12/19 History of present illness: The patient was recently admitted with fever of unknown origin. She had a mild leukocytosis of 1400 and this dropped to 11,600 with antibiotic therapy. On physical examination evaluation by the hospitalist team there was concern of infection for the peritoneal dialysis catheter and the hemodialysis catheter. I made a careful examination of both sites. Both sites have exudate that is expected for Silastic catheter perforation of the skin. Neither site appears to have gross pus, infection, or cellulitis. The patient has requested removal of the peritoneal dialysis catheter which is currently not being used. This is a reasonable approach. At this point I would not recommend removal of the hemodialysis catheter. I would recommend blood cultures be taken through the catheter to try and identify any infection or colonization and the catheter that would warrant removal. The patient is not having any abdominal pain. We will plan peritoneal dialysis catheter removal tomorrow. Past Med Surg Social Fam HX - Past Medical History Medical history: diabetes, hyperlipidemia, hypertension, renal disease, thyroid disease Psychiatric history: no psych history - Past Surgical History Surgical History: cholecystectomy Additional surgical history: permicath, PD cath, hysterectomy - Social History Smoking Status: Never smoker Smokeless Tobacco Status: No Alcohol use: none Drug use: none - Family History Sister Hx Family Endocrine Disorder: Yes (ESRD, diabetes) Medications and Allergies Atorvastatin 20 mg PO HS 07/11/19 [History] Levothyroxine 50 mcg PO DAILY 07/11/19 [History] Linzess 290 mcg PO DAILY 07/11/19 [History] Metoprolol Succinate 25 mg PO DAILY 07/11/19 [History] Topiramate 25 mg PO BID 07/11/19 [History] Tramadol HCl 50 mg PO Q8HR PRN 07/11/19 [History] amLODIPine 5 mg PO DAILY 07/11/19 [History] Allergy/AdvReac Type Severity Reaction Status Date / Time No Known Allergies Allergy Verified 06/23/19 06:10 Review of Systems All systems PM: The remainder of the systems were reviewed and are negative General Surgery Exam Initial Vital Signs Temp Pulse Resp BP Pulse Ox 103.3 F H 143 20 139/92 100 07/11/19 16:35 07/11/19 16:35 07/11/19 16:35 07/11/19 16:35 07/11/19 16:35 - General physical appearance well developed, well nourished, no distress, chronically ill, obese - Neck no masses, no bruits, trachea midline, no lymphadectomy, no venous distension - Respiratory normal expansion, normal respiratory effort, clear to auscultation - Cardiovascular Cardiovascular exam: Present: RRR, no murmurs/rubs/gallops - Abdomen Abdomen general surgery: Present: bowel sounds present, soft, non tender - Incision Incision: Present: clean and dry (The Silastic catheter entry sites into the s kin were examined at the right subclavicular area for the hemodialysis catheter and the left lower quadrant for the peritoneal dialysis catheter entry site. Both sides have a very small amount of crusted exudate on the surface consistent with Silastic catheter entry site into the skin. Both sites are free of any induration or cellulitis. There is no visible pus.) - Neurologic Present: CN 2-12 grossly intact, normal coordination, normal sensation - Psychiatric Psychiatric general surgery: Present: appropriate, oriented to person, oriented to place, oriented to time, speech is normal, memory intact Exam Initial Vital Signs Temp Pulse Resp BP Pulse Ox 103.3 F H 143 20 139/92 100 07/11/19 16:35 07/11/19 16:35 07/11/19 16:35 07/11/19 16:35 07/11/19 16:35 Results - Labs 07/12/19 03:10 07/12/19 03:10 Abnormal lab results WBC 11.6 K/mcL (4.3-11.1) H 07/12/19 03:10 RBC 3.04 M/mcL (3.82-4.97) L 07/12/19 03:10 Hgb 9.1 g/dL (11.5-15.4) L D 07/12/19 03:10 Hct 29.1 % (35.3-44.9) L 07/12/19 03:10 MCHC 31.3 g/dL (31.6-35.5) L 07/12/19 03:10 RDW 16.6 % (11.5-14.5) H 07/12/19 03:10 Plt Count 110 K/mcL (140-400) L 07/12/19 03:10 Neutrophils # 10.4 K/mcL (1.6-8.9) H 07/11/19 16:55 PT 12.7 Seconds (9.4-12.1) H 07/11/19 16:55 Sodium 134 mEq/L (136-145) L 07/12/19 03:10 Chloride 95 mEq/L (98-107) L 07/11/19 16:55 Creatinine 6.11 mg/dL (0.60-1.20) H 07/12/19 03:10 Est GFR ( Amer) 8 (> 60) L 07/12/19 03:10 Est GFR (Non-Af Amer) 7 (> 60) L 07/12/19 03:10 BUN/Creatinine Ratio 3 (6-26) L 07/12/19 03:10 Glucose 173 mg/dL (70-105) H 07/12/19 03:10 POC Glucose 264 mg/dL (70-99) H 07/11/19 22:21 Lactic Acid 2.8 mmol/L (0.5-2.2) H 07/11/19 16:55 Calcium 8.4 mg/dL (8.6-10.3) L 07/12/19 03:10 Phosphorus 5.9 mg/dL (2.7-4.5) H 07/12/19 03:10 Globulin 3.8 g/dL (2.4-3.5) H 07/11/19 16:55 Urine Protein >=300 mg/dL (Neg-Trace) H 07/11/19 20:02 Urine Glucose (UA) 250 mg/dL (Normal) H 07/11/19 20:02 Urine Blood Trace (Negative) H 07/11/19 20:02 Ur Squamous Epith Cells Many per lpf (None-Few) H 07/11/19 20:02 Diabetes panel 07/11/19 07/12/19 Range/Units 16:55 03:10 Sodium 134 L 134 L (136-145) mEq/L Potassium 4.2 5.1 (3.5-5.1) mEq/L Chloride 95 L 98 (98-107) mEq/L Carbon Dioxide 24 24 (23-29) mEq/L BUN 13 20 (8-23) mg/dL Creatinine 4.30 H 6.11 H (0.60-1.20) mg/dL Glucose 215 H 173 H (70-105) mg/dL Calcium 9.1 8.4 L (8.6-10.3) mg/dL AST 21 17 (13-39) Units/L ALT 15 17 (7-52) Units/L Alkaline Phosphatase 51 39 (34-104) Units/L Albumin 4.3 3.6 (3.5-5.7) g/dL Calcium panel 07/11/19 07/12/19 Range/Units 16:55 03:10 Calcium 9.1 8.4 L (8.6-10.3) mg/dL Phosphorus 2.4 L 5.9 H (2.7-4.5) mg/dL Albumin 4.3 3.6 (3.5-5.7) g/dL Pituitary panel 07/11/19 07/12/19 Range/Units 16:55 03:10 Sodium 134 L 134 L (136-145) mEq/L Potassium 4.2 5.1 (3.5-5.1) mEq/L Chloride 95 L 98 (98-107) mEq/L Carbon Dioxide 24 24 (23-29) mEq/L BUN 13 20 (8-23) mg/dL Creatinine 4.30 H 6.11 H (0.60-1.20) mg/dL Glucose 215 H 173 H (70-105) mg/dL Calcium 9.1 8.4 L (8.6-10.3) mg/dL Adrenal panel 07/11/19 07/12/19 Range/Units 16:55 03:10 Sodium 134 L 134 L (136-145) mEq/L Potassium 4.2 5.1 (3.5-5.1) mEq/L Chloride 95 L 98 (98-107) mEq/L Carbon Dioxide 24 24 (23-29) mEq/L BUN 13 20 (8-23) mg/dL Creatinine 4.30 H 6.11 H (0.60-1.20) mg/dL Glucose 215 H 173 H (70-105) mg/dL Calcium 9.1 8.4 L (8.6-10.3) mg/dL Total Bilirubin 0.5 0.3 (0.3-1.0) mg/dL AST 21 17 (13-39) Units/L ALT 15 17 (7-52) Units/L Alkaline Phosphatase 51 39 (34-104) Units/L Albumin 4.3 3.6 (3.5-5.7) g/dL All other labs normal. Consult Discharge Plan - Plan Referrals: NONE,PCP [Primary Care Provider] -
--- NOTE | 2019-07-12 11:25 | Nephrology Consult Note ---
Date of Encounter: 07/12/19 Time of Encounter: 09:15 Assessment and Plan (1) ESRD on dialysis Current Visit: Yes Status: Acute She has end-stage renal disease, according to the patient and has been dialyzing every Sunday/Sunday/Sunday. She last dialyzed yesterday (Sunday) at the "[facility]" dialysis unit, which I presume in the [facility]. This patient has never been seen by me, and she is apparently followed by an outside nephrology practice. Their medical records are not immediately available to me, so I recommend requesting Nephrology records from the former [facility]. The patient seems to be an unreliable historian as she cannot report many details of her kidney care, but she said approximately 3 months ago she stopped using the PD catheter and has been getting hemodialysis. It is unclear why the PD catheter was never removed, but now it appears to be infected. I appreciate the [facility] team in helping her move the PD catheter. Since she dialyzed just yesterday, according to the patient, she does not have urgent indications for dialysis today (Sunday). We may need to consult infectious disease if her permacath is also co-infected. I see that blood cultures have already been checked. I will await the results. Thank you for consulting the [facility] on this complex patient who required a very high degree of evaluation and management plus medical decision making. I will follow with you. (2) Peritoneal dialysis catheter exit site infection Current Visit: Yes Status: Acute Qualifiers: Encounter type: initial encounter Qualified Code(s): T85.71XA - Infection and inflammatory reaction due to peritoneal dialysis catheter, initial encounter (3) Sepsis Current Visit: Yes Status: Acute Qualifiers: Sepsis type: sepsis due to unspecified organism Sepsis acute organ dysfunction status: unspecified Qualified Code(s): A41.9 - Sepsis, unspecified organism History of Present Illness - Reason for Consult Consult date: 07/12/19 end stage renal disease Requesting physician: Beltran Rinocn - Chief Complaint ESRD, Infection of PD catheter - History of Present Illness The patient is a pleasant 59-year-old -[place] female with a past medical history of end-stage renal disease on HD every Sunday/Sunday/Sunday, obesity, hypertension, and etc. who presented from her dialysis unit after completing dialysis on Sunday. Nephrology was consulted. This patient is not known to me or the [facility], and she is followed by an outside nephrology group who no longer provides coverage of their patients when hospitalized. The patient was unable to provide any specific history, and she hardly knew which dialysis unit she goes to. She said that she was previously on peritoneal dialysis, but stopped doing it approximately "3 months ago." She could not state why the PD catheter was still in place, but she has been developing fevers and was suspected to have an infected PD catheter and sent to the hospital, according to the H&P. She was by herself with no family members present to help supplement history. Her dialysis unit is not open today and so will have to request medical records. Her ability to report history appears to be diminished as she could not provide any specific details. She appeared to just not know any of the details. She did not affirm taking any [id number] NSAIDs. Past Med Surg Social Fam HX - Past Medical History Medical history: diabetes, hyperlipidemia, hypertension, renal disease, thyroid disease Psychiatric history: no psych history - Past Surgical History Surgical History: cholecystectomy Additional surgical history: permicath, PD cath, hysterectomy - Social History Smoking Status: Never smoker Smokeless Tobacco Status: No Alcohol use: none Drug use: none - Family History Sister Hx Family Endocrine Disorder: Yes (ESRD, diabetes) Medications and Allergies Atorvastatin Calcium [Lipitor] 20 mg PO DAILY 07/12/19 [History] B Complex W-C No.20/Folic Acid [Virt-Caps Softgel] 1 mg PO MOWEFR 07/12/19 [History] Calcitriol [Rocaltrol] 0.25 mcg PO DAILY 07/12/19 [History] Glucagon,Human Recombinant [Glucagen] 1 mg IM ONCE PRN 07/12/19 [History] Insulin LISPRO [Humalog Kwikpen U-100] 0 unit SQ TIDWM PRN 07/12/19 [History] Levothyroxine [Synthroid] 50 mcg PO QAM 07/12/19 [History] Linaclotide [Linzess] 290 mcg PO DAILY 07/12/19 [History] Metoprolol Succinate [Toprol Xl] 25 mg PO DAILY 07/12/19 [History] Topiramate [Topamax] 25 mg PO Q12H 07/12/19 [History] Tramadol HCl [Ultram] 50 mg PO Q8H PRN 07/12/19 [History] amLODIPine [Norvasc] 5 mg PO DAILY 07/12/19 [History] Allergy/AdvReac Type Severity Reaction Status Date / Time No Known Allergies Allergy Verified 06/23/19 06:10 Review of Systems All Systems: reviewed and no additional remarkable complaints except as stated Exam - Vital Signs Vital signs: Initial Vital Signs Temp Pulse Resp BP Pulse Ox 103.3 F H 143 20 139/92 100 07/11/19 16:35 07/11/19 16:35 07/11/19 16:35 07/11/19 16:35 07/11/19 16:35 Vital Signs - Last 8 Hours Temp Pulse Resp BP Pulse Ox 07/12/19 11:05 99.3 F 105 17 110/76 95 07/12/19 08:53 98.5 F 92 16 115/78 97 07/12/19 05:11 98.5 F 76 15 110/71 98 Intake and Output 07/11/19 07/12/19 07/12/19 23:59 07:59 15:59 Intake Total 1350 / 1350 0 / 0 Balance 1350 / 1350 0 / 0 Intake: IV Fluids 1350 / 1350 0.9 % Sodium Chloride 500 ML @ 1000 / 1000 999 mls/hr IVC .Q31M ONE Rx#: [id number] Zosyn 3.375 GM In 0.9 % Sodium 100 / 100 Chloride (Mini-Bag +) 100 ML @ 25 mls/hr IVPB ONCE ONE Rx#: [id number] Vancocin 1,500 MG In 0.9 % 250 / 250 Sodium Chloride 250 ML @ 167 mls/hr IVPB ONCE ONE Rx#: [id number] Oral 0 / 0 0 / 0 Other: Weight 102.965 kg 106.5 kg Blood Glucose* 264 128 222 Patient Weight 07/12/19 23:59 Weight 106.5 kg - General Appearance General appearance: well-developed, well-nourished, appears started age, obese, chronically ill EENT: ATNC, PERRL, mucous membranes moist Neck: no JVD, supple Respiratory: no kyphosis, clear Cardiology: edema (nontense ankle swelling plus adiposity), regular rate, regular rhythm, normal S1, normal S2 - Dialysis Access Dialysis Vascular Access: Venous Catheter (right sided Permacath. LLQ PD catheter) Gastrointestinal: normoactive bowel sounds, no tenderness, no guarding Integumentary: rash Neurologic: no asterixis, confused Musculoskeletal: no cyanosis, no clubbing Psychiatric: mood/affect appropriate, cooperative Results - Lab Results 07/13/19 05:51 07/13/19 05:51 Most recent lab results 07/12/19 03:10 Calcium 8.4 L Phosphorus 5.9 H Magnesium 1.8 Consult Discharge Plan - Plan Referrals: NONE,PCP [Primary Care Provider] -
[2019-07-12] MEDS: Acetaminophen 325 MG TABLET PO PRN ×2 (11:37→19:00)
[2019-07-12 11:54] LABS: Acinetobacter baumannii by PCR Not Detected (Not Detect); Candida albicans by PCR Not Detected (Not Detect); Candida glabrata by PCR Not Detected (Not Detect); Candida krusei by PCR Not Detected (Not Detect); Candida parapsilosis by PCR Not Detected (Not Detect); Candida tropicalis by PCR Not Detected (Not Detect); Enterobacter cloacae Cmplx PCR Not Detected (Not Detect); Enterobacteriaceae by PCR Not Detected (Not Detect); Enterococcus by PCR Not Detected (Not Detect); Escherichia coli by PCR Not Detected (Not Detect); Klebsiella oxytoca by PCR Not Detected (Not Detect); Klebsiella pneumoniae by PCR Not Detected (Not Detect); Proteus by PCR Not Detected (Not Detect); Pseudomonas aeruginosa by PCR Not Detected (Not Detect); Serratia marcescens by PCR Not Detected (Not Detect); Staphylococcus aureus by PCR Not Detected (Not Detect); Staphylococcus by PCR DETECTED (Not Detect); Streptococcus agalactiae(B)PCR Not Detected (Not Detect); Streptococcus by PCR Not Detected (Not Detect); Streptococcus pneumoniae PCR Not Detected (Not Detect); Streptococcus pyogenes (A) PCR Not Detected (Not Detect); mecA Methicillin-Resist Gene Not Detected (Not Detect)
--- NOTE | 2019-07-12 13:24 | Internal Med Progress Note ---
Hospitalist Progress Note - Encounter Date of Encounter: 07/12/19 Time of Encounter: 09:22 - Subjective Interval History: No acute events overnight. Patient is here for fever following hemodialysis yesterday. She currently denies fever, chills, abdominal pain, nausea and vomiting. - Exam Vitals: Temp Pulse Resp BP Pulse Ox 37.4 C 105 17 110/76 95 07/12/19 11:05 07/12/19 11:05 07/12/19 11:05 07/12/19 11:05 07/12/19 11:05 Exam: GENERAL: Obese patient, Not in distress. Alert and Oriented HEENT: EOMI, PERRLA MOUTH: Moist oral mucosa NECK:No JVD, No lymph nodes. CHEST AND LUNGS: Normal breath sounds, no wheezes or crackles HEART: S1 and S2 normal, no murmurs ABDOMEN: Soft, nontender, no organomegaly. Peritoneal dialysis catheter in place. SKIN: Normal color, no rahses, no lesions EXTREMITIES: No deformity, no edema, no tenderness, no joint swelling or c lubbing NEUROLOGICAL: Normal cognition, normal motor and sensory exam. - - Assessment and Plan (1) Sepsis Current Visit: Yes Status: Acute Assessment and Plan: Patient presented with fever, leukocytosis and hypotension. WBC now 11.6<12.2 BP and temperature stable Preliminary blood culture results positive for gram-positive cocci We will continue vancomycin and Zosyn Monitor vitals Consults infectious diseases Order Echo Seen by general surgery and plan is to remove peritoneal dialysis catheter tomorrow. (2) ESRD on dialysis Current Visit: Yes Status: Acute Assessment and Plan: Dialysis sunday, sunday and sunday. Seen by nephrology. Ariel not dialyse today since she had a session yesterday. They will continue to follow (3) Diabetes mellitus Current Visit: Yes Status: Acute Assessment and Plan: Patient is not an insulin dependent diabetic Monitor sugars Q6H Diabetic diet/ NPO after midnight Low dose insulin sliding scale as needed Hold home meds. (4) DVT prophylaxis Current Visit: Yes Status: Acute Assessment and Plan: SCDs (5) Headache Current Visit: Yes Status: Acute Assessment and Plan: Patient initially complained of headaches and was given morphine in the emergency department. She currently denies headache and dizziness. We will monitor - Time Spent with Patient Total time spent is greater than 50% in coordination of care (as documented) at patient's floor/unit and/or counseling patient: Internal Medicine: Result - Labs CBC & Chem 7: 07/12/19 03:10 07/12/19 03:10 Labs: Short CBC 07/11/19 07/12/19 Range/Units 16:55 03:10 WBC 12.4 H 11.6 H (4.3-11.1) K/mcL Hgb 10.9 L 9.1 L D (11.5-15.4) g/dL Hct 34.0 L 29.1 L (35.3-44.9) % Plt Count 121 L 110 L (140-400) K/mcL Neutrophils # 10.4 H (1.6-8.9) K/mcL BMP 07/11/19 07/12/19 16:55 03:10 Sodium 134 L 134 L Potassium 4.2 5.1 Chloride 95 L 98 Carbon Dioxide 24 24 BUN 13 20 Creatinine 4.30 H 6.11 H Glucose 215 H 173 H Calcium 9.1 8.4 L Cardiac Enzymes 07/11/19 Range/Units 16:55 Troponin I < 0.03 (< 0.04) ng/mL Liver Function 07/11/19 07/12/19 Range/Units 16:55 03:10 Total Bilirubin 0.5 0.3 (0.3-1.0) mg/dL Direct Bilirubin 0.0 (0.0-0.2) mg/dL AST 21 17 (13-39) Units/L ALT 15 17 (7-52) Units/L Alkaline Phosphatase 51 39 (34-104) Units/L Albumin 4.3 3.6 (3.5-5.7) g/dL Urine 07/11/19 Range/Units 20:02 Urine Color Yellow (Yellow) Urine Clarity Clear (Clear) Urine pH 7.5 (5.0-8.0) pH Units Ur Specific [place] 1.014 (1.010-1.025) Urine Protein >=300 H (Neg-Trace) mg/dL Urine Glucose (UA) 250 H (Normal) mg/dL - ABG Interpretation ABG results: PT/INR, D-dimer PT 12.7 Seconds (9.4-12.1) H 07/11/19 16:55 - Impressions Impressions Chest X-Ray 07/11/19 16:52 IMPRESSION: No acute findings D/ / Eladia Solis MD / Eladia Solis MD Interpreting Provider: Eladia Solis MD Consult Discharge Plan - Plan Referrals: NONE,PCP [Primary Care Provider] - (1) Sepsis Qualifiers: Sepsis type: sepsis due to unspecified organism Sepsis acute organ dysfunction status: unspecified Qualified Code(s): A41.9 - Sepsis, unspecified organism (3) Diabetes mellitus Qualifiers: Diabetes mellitus type: type 2 Diabetes mellitus supervisor intermediates insulin use: without group home use Diabetes mellitus complication status: with other specified complication Qualified Code(s): E11.69 - Type 2 diabetes mellitus with other specified complication (5) Headache Qualifiers: Headache type: unspecified Headache chronicity pattern: acute headache Intractability: not intractable Qualified Code(s): R51 - Headache
[2019-07-12 14:33] LABS: Hepatitis B Surface Antibody 5.73 mIU/mL
[2019-07-12 14:44] LABS: Hepatitis B Surface Antigen Nonreactive (Nonreactive)
[2019-07-12] MEDS ORDERED: NON-FORMULARY MEDICATION 1 EACH EACH (Glucagon,Human Recombinant [Glucagen] 1 MG) IM PRN (17:00)
[2019-07-12] MEDS ORDERED: traMADol 50 MG TABLET PO PRN (17:00)
[2019-07-12] MEDS: Topiramate 25 MG TABLET PO SCH (17:54)
[2019-07-12] MEDS ORDERED: *HR* Metoprolol 5 MG/5 ML VIAL IVP ONE ×2 (18:56→18:59)
[2019-07-12] MEDS ORDERED: Insulin LISPRO 300 UNITS/3 ML VIAL SQ SCH (21:00)
[2019-07-13] MEDS: Topiramate 25 MG TABLET PO SCH ×2 (05:14→16:18)
[2019-07-13] MEDS: Piperacillin/Tazobactam 3.375 GM in 0.9 % Sodium Chloride Mini Bag 100 ML IVPB SCH ×2 (05:14→18:24)
[2019-07-13 06:37] LABS: Hematocrit 27.6 % (35.3-44.9); Hemoglobin 8.9 g/dL (11.5-15.4); Mean Corpuscular HGB Conc 32.2 g/dL (31.6-35.5); Mean Corpuscular Hemoglobin 30.7 pg (28.0-33.3); Mean Corpuscular Volume 95.2 fL (83.0-100.0); Mean Platelet Volume 10.9 fL (9.4-12.4); Platelet Count 152 K/mcL (140-400); Red Cell Distribution Width 16.5 % (11.5-14.5); White Blood Count 10.1 K/mcL (4.3-11.1)
[2019-07-13 07:00] LABS: Calcium 9.1 mg/dL (8.6-10.3); Potassium 4.9 mEq/L (3.5-5.1)
[2019-07-13] MEDS ORDERED: *HR* Propofol 200 MG/20 ML VIAL IVP ONE (07:20)
[2019-07-13] MEDS ORDERED: Lidocaine -MPF 2% 2 ML VIAL ONE (07:20)
[2019-07-13] MEDS ORDERED: Ondansetron 4 MG/2 ML VIAL ONE (07:20)
[2019-07-13] MEDS ORDERED: Dexamethasone 4 MG/ML VIAL ONE (07:20)
[2019-07-13] MEDS ORDERED: *HR* FentaNYL (PF) 100 MCG/2 ML VIAL ONE ×2 (07:20→08:53)
--- NOTE | 2019-07-13 07:20 | Anesthesia Evaluation PreOp ---
Date of Encounter: 07/13/19 Time of Encounter: 07:33 - Past History Planned Operation: PERITONEAL DIALYSIS CATHETER REMOVAL Cardiac History: HTN, Hyperlipidemia, Other (Tachycardia with fever this admission, given metoprolol) Pulmonary History: Denies Any Significant HX SAP BASIS History: Denies Any Significant HX Other Medical History: Renal (ESRD on hemodialysis (MWF)), Diabetes Type II, Thyroid, Other (Sepsis presumed from peritoneal dialysis catheter) Anesthesia History: No Prior Anesthetic Complications, Past Anesthesia ([facility], hyst, PD cath, permicath) : No Alcohol Use: none Drug use: none Medications and Allergies Atorvastatin Calcium [Lipitor] 20 mg PO DAILY 07/12/19 [History] B Complex W-C No.20/Folic Acid [Virt-Caps Softgel] 1 mg PO MOWEFR 07/12/19 [History] Calcitriol [Rocaltrol] 0.25 mcg PO DAILY 07/12/19 [History] Glucagon,Human Recombinant [Glucagen] 1 mg IM ONCE PRN 07/12/19 [History] Insulin LISPRO [Humalog Kwikpen U-100] 0 unit SQ TIDWM PRN 07/12/19 [History] Levothyroxine [Synthroid] 50 mcg PO QAM 07/12/19 [History] Linaclotide [Linzess] 290 mcg PO DAILY 07/12/19 [History] Metoprolol Succinate [Toprol Xl] 25 mg PO DAILY 07/12/19 [History] Topiramate [Topamax] 25 mg PO Q12H 07/12/19 [History] Tramadol HCl [Ultram] 50 mg PO Q8H PRN 07/12/19 [History] amLODIPine [Norvasc] 5 mg PO DAILY 07/12/19 [History] Allergy/AdvReac Type Severity Reaction Status Date / Time No Known Allergies Allergy Verified 06/23/19 06:10 - Meds/Allergy Pre-op Review Medications Reviewed: Yes Allergies Reviewed: Yes Beta Blockers on Current Med List: Yes Anesthesia Results - Labs 07/13/19 05:51 07/13/19 05:51 - Imaging EKG: report reviewed Anesthesia Exam Vital Signs/O2 Sat, Most Current Temp Pulse Resp BP Pulse Ox 99.5 F 98 18 130/78 97 07/13/19 03:52 07/13/19 03:52 07/13/19 03:52 07/13/19 03:52 07/13/19 03:52 - HEENT Pupil (Motor): Pupils equal, EOMI Mallampati: III Teeth: Edentulous Oral Opening: Greater than 3 - SAP BASIS LOC: Oriented SAP BASIS Motor: Normal RUE, Normal LUE, Normal RLE, Normal LLE, Normal Face SAP BASIS Sensory: Normal: RUE, LUE, RLE, LLE, Face - Cardiac Rhythm: Regular - Pulmonary Breath Sounds: bilateral Clear Respiratory Effort: Symmetrical Anesthesia Assess/Plan ASA Score: 3 Level of consciousness: Cooperative Anesthetic Plan: General Monitoring Plan: Standard Monitors Recovery Plan: PACU
[2019-07-13] MEDS ORDERED: *HR* HYDROmorphone (PF) 1 MG/ML SYRINGE IVP PRN ×2 (07:34→10:41)
[2019-07-13] MEDS ORDERED: *HR* Meperidine 25 MG/ML SYRINGE IVP PRN ×2 (07:34→10:41)
[2019-07-13] MEDS ORDERED: Ringers Solution, Lactated 1,000 ML IVC SCH ×2 (07:45→10:41)
[2019-07-13] MEDS ORDERED: *HR* Succinylcholine 200 MG/10 ML VIAL IVP ONE (08:01)
[2019-07-13] MEDS ORDERED: Lidocaine HCL 4 ML Topical Solution (Laryng-O-Jet Kit Sterile Pak) TP ONE (08:02)
[2019-07-13] MEDS ORDERED: CefOXitin 1,000 MG VIAL ONE (08:47)
[2019-07-13] MEDS ORDERED: *HR* PHENYLEPHRINE 1,000 MCG/10 ML SYRINGE IVP ONE (08:55)
[2019-07-13] MEDS ORDERED: Metoprolol XL (24 HR) Succ 25 MG TAB.ER.24H PO SCH (09:00)
[2019-07-13] MEDS ORDERED: amLODIPine 5 MG TABLET PO SCH (09:00)
[2019-07-13] MEDS ORDERED: (Linaclotide [Linzess] 290 MCG) PO SCH (09:00)
--- NOTE | 2019-07-13 09:19 | Operative Note ---
Date of procedure: 07/13/19 Pre-op diagnosis: Infected peritoneal dialysis catheter Post-op diagnosis: same Procedure: Removal of peritoneal dialysis catheter Anesthesia: TARI Surgeon: Cliff Lobato Was there an pest controller assistant present: No Estimated blood loss (cc): 10 Specimen: None Condition: stable Disposition: PACU Procedure in Detail: After informed consent the patients taking major operative suite placed supine position given adequate general endotracheal anesthesia. Timeout was taken and patient was identified. The peritoneal dialysis entry site and midline were prepped and draped in sterile fashion utilizing Betadine solution and standard draping techniques. Timeout was taken and the patient was identified. I made a transverse incision overlying the midline and dissected down to the catheter entry site through the midline. There were 2 Dacron cuffs. One was just above the fascia and one was at the level of the rectus muscle. Both cuffs were removed. The entire Silastic catheter was removed from the abdominal cavity and cultures were taken for both aerobic and anaerobic cultures. I completely remove the cuffs from the surrounding scar tissue. The catheter was divided at this level. I then made a separate counter incision at the entry site down to the level of the dacryon cuff by the skin entry site. I completely dissected around the dacryon cuff and removed the remainder of the catheter. Electrocautery was used for hemostasis on all levels. Total blood loss was 10 mL. Midline fascia was closed with 3 interrupted stitches of 0 Nurolon. The midline incision was irrigated with copious amounts of antibiotic containing solution and then closed with interrupted 2-0 Vicryl in the subcutaneous layer and 6 kin sadi on the superficial layer. The lateral incision was debrided. I closed with 4 sadi and then used a iodoform wick on the lateral aspect at the area of the Silastic catheter entry. This gave an excellent technical result. Patient tolerated the procedure very well
[2019-07-13] MEDS: *HR* Promethazine 25 MG/ML VIAL IVP PRN ×2 (09:43→09:50)
--- NOTE | 2019-07-13 10:16 | Nephrology Progress Note ---
Date of Encounter: 07/13/19 Time of Encounter: 11:00 - Assessment and Plan (1) ESRD on dialysis Current Visit: Yes Status: Acute Tentatively planning for next HD on Sunday. Appreciate Dr. Lobato for removing the infected PD catheter, which according to the patient was left in place for the last "3 months" after being converted to hemodialysis by her outside nephrology provider (the former [facility]). Recommend following strict I's and O's, daily weights, avoidance of nephrotoxic agents, renal dosing (2) Peritoneal dialysis catheter exit site infection Current Visit: Yes Status: Acute See above. Qualifiers: Encounter type: initial encounter Qualified Code(s): T85.71XA - Infection and inflammatory reaction due to peritoneal dialysis catheter, initial encounter (3) Sepsis Current Visit: Yes Status: Acute Abx as per primary Qualifiers: Sepsis type: sepsis due to unspecified organism Sepsis acute organ dysfunction status: unspecified Qualified Code(s): A41.9 - Sepsis, unspecified organism (4) Anemia Current Visit: Yes Status: Acute Likely acute on chronic. She has multifactorial potential etiologies, including postop and anemia of chronic disease. Goal hemoglobin is 10-11. Will follow. Qualifiers: Anemia type: unspecified type Qualified Code(s): D64.9 - Anemia, unspecified Subjective Principal diagnosis: ESRD Interval history: The patient was seen and examined, and she did not affirm having nausea, vomiting, or diarrhea. She was having fevers yesterday, she affirmed. She reported feeling tired, but again affirmed that she did complete dialysis on Sunday. Objective - Vital Signs Vital signs: Vital Signs Temp Pulse Resp BP Pulse Ox 07/13/19 10:05 98.0 F 86 20 127/71 99 07/13/19 09:56 98.1 F 91 20 135/109 99 07/13/19 09:46 90 20 116/86 99 07/13/19 09:36 93 20 103/70 93 07/13/19 09:26 98.6 F 94 20 139/41 100 07/13/19 07:43 98.6 F 96 18 140/75 94 07/13/19 03:52 99.5 F 98 18 130/78 97 07/12/19 23:57 98.6 F 95 18 115/75 96 07/12/19 20:15 100.8 F H 124 18 119/67 95 07/12/19 18:58 102.9 F H 07/12/19 18:40 102.9 F H 151 34 155/86 98 07/12/19 15:10 98.9 F 100 16 93/64 98 07/12/19 11:05 99.3 F 105 17 110/76 95 Intake and Output 07/12/19 07/13/19 07/13/19 23:59 07:59 15:59 Intake Total 100 / 200 0 / 0 Output Total Balance 100 / 200 0 / -10 -10 -10 Intake: IV Fluids 100 / 200 Zosyn 3.375 GM In 0.9 % Sodium 100 / 200 Chloride (Mini-Bag +) 100 ML @ 25 mls/hr IVPB Q12HR [facility] Rx#: [id number] Oral 0 / 0 Output: Estimated Blood Loss Other: Weight 104.3 kg Blood Glucose* 245 136 Patient Weight 07/13/19 23:59 Weight 104.3 kg - General Appearance Exam: General appearance: well-developed, well-nourished, appears started age, obese, chronically ill EENT: ATNC, PERRL, mucous membranes moist Neck: no JVD, supple Respiratory: no kyphosis, clear Cardiology: edema (nontense ankle swelling plus adiposity), regular rate, regular rhythm, normal S1, normal S2 - Dialysis Access Dialysis Vascular Access: Venous Catheter (right sided Permacath. LLQ PD catheter) Gastrointestinal: normoactive bowel sounds, no tenderness, no guarding Integumentary: rash Neurologic: no asterixis, confused Musculoskeletal: no cyanosis, no clubbing Psychiatric: mood/affect appropriate, cooperative - Lab 07/13/19 05:51 07/13/19 05:51 Most recent lab results 07/13/19 05:51 Calcium 9.1 Consult Discharge Plan - Plan Referrals: NONE,PCP [Primary Care Provider] -
--- NOTE | 2019-07-13 10:29 | Anesthesia Evaluation Post Op ---
Date of Encounter: 07/13/19 Time of Encounter: 10:28 - Vital Signs Vital Signs: Vital Signs/O2 Sat, Most Current Temp Pulse Resp BP Pulse Ox 98.0 F 86 20 127/71 99 07/13/19 10:05 07/13/19 10:05 07/13/19 10:05 07/13/19 10:05 07/13/19 10:05 - Lungs Lungs: Clear Ascult./Percussion - Airway Airway: Non-obstructed - Cardiovascular Regular Rate, Baseline Rhythm - Mental Status Mental Status: Alert & Oriented, Answers Appropriately - Pain Pain Scale: 0 - Nausea Vomiting Nausea Vomiting: Not Present - Hydration Hydration: Ice chips - Discharge PostOp Status: Transfer Patient to floor
[2019-07-13] MEDS ORDERED: Dextrose Gel 15 GM/37.5 ML TUBE PO PRN ×2 (10:41)
[2019-07-13] MEDS ORDERED: D5% in Water 1,000 ML IVC PRN (10:41)
[2019-07-13] MEDS ORDERED: traMADol 50 MG TABLET PO PRN (10:41)
[2019-07-13] MEDS ORDERED: Naloxone 0.4 MG/ML INJ IVP PRN (10:41)
[2019-07-13] MEDS ORDERED: Acetaminophen 325 MG TABLET PO PRN (10:41)
[2019-07-13] MEDS ORDERED: *HR* Dextrose 50 % in Water (Syg) 50 ML SYRINGE IVP PRN (10:41)
[2019-07-13] MEDS: Insulin LISPRO 300 UNITS/3 ML VIAL SQ SCH ×3 (11:24→21:48)
--- NOTE | 2019-07-13 11:57 | Internal Med Progress Note ---
Hospitalist Progress Note - Encounter Date of Encounter: 07/13/19 Time of Encounter: 08:30 - Subjective Interval History: Patient here for gram-positive bacteremia. She just returned from surgery for removal of peritoneal peritoneal dialysis catheter. She states that it felt as if "a baby was taken out of her". Denies abdominal pain, fever, chills nausea and vomiting. - Exam Vitals: Temp Pulse Resp BP Pulse Ox 37.2 C 82 16 108/72 97 07/13/19 10:15 07/13/19 11:00 07/13/19 11:00 07/13/19 11:00 07/13/19 11:00 Exam: GENERAL: Not in distress. Alert and Oriented HEENT: EOMI, PERRLA MOUTH: Moist oral mucosa NECK:No JVD, No lymph nodes. CHEST AND LUNGS: Normal breath sounds, no wheezes or crackles HEART: S1 and S2 normal, no murmurs ABDOMEN: Soft, nontender, no organomegaly. Peritoneal dialysis site covered with clean surgical dressing. SKIN: Normal color, no rahses, no lesions EXTREMITIES: No deformity, no edema, no tenderness, no joint swelling or clu bbing NEUROLOGICAL: Normal cognition, normal motor and sensory exam. - Assessment and Plan (1) Sepsis Current Visit: Yes Status: Acute Assessment and Plan: Patient presented with fever, leukocytosis and hypotension. WBC now 10.1<11.6 She had a fever of 38.2 degrees Celsius last night Preliminary blood culture results positive for gram-positive cocci We will continue vancomycin and Zosyn Monitor vitals Echo pending Infectious disease consulted (2) ESRD on dialysis Current Visit: Yes Status: Acute Assessment and Plan: Dialysis sunday, sunday and sunday. Seen by nephrology. Next dialysis session is tomorrow. (3) Diabetes mellitus Current Visit: Yes Status: Acute Assessment and Plan: Patient is not an insulin dependent diabetic Monitor sugars Q6H Diabetic diet/ NPO after midnight Low dose insulin sliding scale as needed Hold home meds. (4) DVT prophylaxis Current Visit: Yes Status: Acute Assessment and Plan: SCDs - Time Spent with Patient Total time spent is greater than 50% in coordination of care (as documented) at patient's floor/unit and/or counseling patient: Internal Medicine: Result - Labs CBC & Chem 7: 07/13/19 05:51 07/13/19 05:51 Labs: Short CBC 07/13/19 Range/Units 05:51 WBC 10.1 (4.3-11.1) K/mcL Hgb 8.9 L (11.5-15.4) g/dL Hct 27.6 L (35.3-44.9) % Plt Count 152 (140-400) K/mcL BMP 07/13/19 05:51 Sodium 137 Potassium 4.9 Chloride 98 Carbon Dioxide 23 BUN 41 H Creatinine 9.83 H Glucose 157 H Calcium 9.1 - ABG Interpretation ABG results: PT/INR, D-dimer PT 12.7 Seconds (9.4-12.1) H 07/11/19 16:55 Consult Discharge Plan - Plan Referrals: NONE,PCP [Primary Care Provider] - (1) Sepsis Qualifiers: Sepsis type: sepsis due to unspecified organism Sepsis acute organ dysfunction status: unspecified Qualified Code(s): A41.9 - Sepsis, unspecified organism (3) Diabetes mellitus Qualifiers: Diabetes mellitus type: type 2 Diabetes mellitus nursing home insulin use: without vermin exterminator use Diabetes mellitus complication status: with other specified complication Qualified Code(s): E11.69 - Type 2 diabetes mellitus with other specified complication
[2019-07-14] MEDS: Topiramate 25 MG TABLET PO SCH ×2 (05:10→18:41)
[2019-07-14] MEDS: Piperacillin/Tazobactam 3.375 GM in 0.9 % Sodium Chloride Mini Bag 100 ML IVPB SCH ×2 (05:10→20:38)
[2019-07-14 06:44] LABS: Hematocrit 25.4 % (35.3-44.9); Hemoglobin 8.1 g/dL (11.5-15.4); Mean Corpuscular HGB Conc 31.9 g/dL (31.6-35.5); Mean Corpuscular Hemoglobin 30.6 pg (28.0-33.3); Mean Corpuscular Volume 95.8 fL (83.0-100.0); Mean Platelet Volume 10.5 fL (9.4-12.4); Platelet Count 184 K/mcL (140-400); Red Blood Count 2.65 M/mcL (3.82-4.97); Red Cell Distribution Width 16.4 % (11.5-14.5); White Blood Count 8.3 K/mcL (4.3-11.1)
[2019-07-14 06:48] LABS: Calcium 8.7 mg/dL (8.6-10.3); Potassium 5.9 mEq/L (3.5-5.1)
[2019-07-14] MEDS ORDERED: 0.9 % Sodium Chloride 250 ML IVC PRN (07:33)
[2019-07-14] MEDS ORDERED: 0.9 % Sodium Chloride 1,000 ML PRIME SCH (07:45)
--- NOTE | 2019-07-14 09:00 | AcuteCareSurgery Progress Note ---
Date of Encounter: 07/14/19 Time of Encounter: 07:00 - Assessment and Plan (1) Peritoneal dialysis catheter exit site infection Current Visit: Yes Status: Acute POD#1 removal of PD catheter. Packing is inplace at PD cath insertion site. Daily packing changes with 1/2" iodoform packing. Leukocytosis has resolved. Recommend leaving temporary hemodialysis catheter in place as infection has resolved. Upon discharge from the hospital, pt to follow up with Acute Care Surgery for wound follow-up. Call [facility] clinic for appt. Surgery signing off. Thank you for allowing us to participate in this patient's care. Qualifiers: Encounter type: initial encounter Qualified Code(s): T85.71XA - Infection and inflammatory reaction due to peritoneal dialysis catheter, initial encounter (2) ESRD on dialysis Current Visit: Yes Status: Acute (3) Diabetes mellitus Current Visit: Yes Status: Acute Qualifiers: Diabetes mellitus type: type 2 Diabetes mellitus longterm insulin use: without manager long term care use Diabetes mellitus complication status: with other specified complication Qualified Code(s): E11.69 - Type 2 diabetes mellitus with other specified complication Subjective Narrative: POD#1 peritoneal dialysis catheter removal. Pt denies abdominal pain or problems with incisions. Pt does complain of diarrhea x1 episode that was uncontrolled and watery. She denies fevers, nausea or vomiting. She is tolerating a renal diet. Objective Vital Signs - Last 8 Hours Temp Pulse Resp BP Pulse Ox 07/14/19 07:49 98.1 F 65 16 111/72 96 07/14/19 04:34 98.0 F 70 16 124/82 98 Intake and Output 07/13/19 07/14/19 07/14/19 23:59 07:59 15:59 Intake Total 340 / 660 340 / 340 Balance 340 / 650 340 / 340 Intake: IV Fluids 100 / 100 100 / 100 Zosyn 3.375 GM In 0.9 % Sodium 100 / 100 100 / 100 Chloride (Mini-Bag +) 100 ML @ 25 mls/hr IVPB Q12HR [facility] Rx#: [id number] Oral 240 / 560 240 / 240 Other: Meal Dinner Percent of Meal Consumed 100% Stool Size Large Stool Consistency liquid soft Stool Color Brown # Voids 1 # Bowel Movements 1 # Bowel Movement Diapers 1 Weight 104.6 kg Blood Glucose* 279 173 Patient Weight 07/14/19 23:59 Weight 104.6 kg - General physical appearance no distress, no pain - Eyes PERRL, normal ocular movement - ENT normal mucosa, no congestion - Neck Neck exam: trachea midline, no venous distension - Respiratory normal respiratory effort, clear to auscultation - Cardiovascular Cardiovascular exam: Present: RRR. Absent: JVD - Abdomen Abdomen: Present: bowel sounds present, soft, non tender Additional Comments: Packing in place in abdominal wound where the catheter was removed. - Neurologic CN 2-12 grossly intact, normal coordination - Musculoskeletal normal posture - Psychiatric oriented to time, oriented to person, oriented to place - Labs 07/14/19 06:18 07/14/19 06:18 Diabetes panel 07/14/19 Range/Units 06:18 Sodium 133 L (136-145) mEq/L Potassium 5.9 H (3.5-5.1) mEq/L Chloride 100 (98-107) mEq/L Carbon Dioxide 22 L (23-29) mEq/L BUN 62 H (8-23) mg/dL Creatinine 11.82 H (0.60-1.20) mg/dL Glucose 182 H (70-105) mg/dL Calcium 8.7 (8.6-10.3) mg/dL Calcium panel 07/14/19 Range/Units 06:18 Calcium 8.7 (8.6-10.3) mg/dL Pituitary panel 07/14/19 Range/Units 06:18 Sodium 133 L (136-145) mEq/L Potassium 5.9 H (3.5-5.1) mEq/L Chloride 100 (98-107) mEq/L Carbon Dioxide 22 L (23-29) mEq/L BUN 62 H (8-23) mg/dL Creatinine 11.82 H (0.60-1.20) mg/dL Glucose 182 H (70-105) mg/dL Calcium 8.7 (8.6-10.3) mg/dL Adrenal panel 07/14/19 Range/Units 06:18 Sodium 133 L (136-145) mEq/L Potassium 5.9 H (3.5-5.1) mEq/L Chloride 100 (98-107) mEq/L Carbon Dioxide 22 L (23-29) mEq/L BUN 62 H (8-23) mg/dL Creatinine 11.82 H (0.60-1.20) mg/dL Glucose 182 H (70-105) mg/dL Calcium 8.7 (8.6-10.3) mg/dL Consult Discharge Plan - Plan Referrals: NONE,PCP [Primary Care Provider] -
--- NOTE | 2019-07-14 09:04 | Electrocardiograph Report ---
[place] [id number] Test Date: 2019-07-11 Pat Name: Selam Zimmerman Department: [id number] Room: 2A71 Gender: F Plant Inspector: : [id number] Requested By: Tita Madera Order Number: [id number] Reading MD: Seun Roy Measurements Intervals [place] Rate: 143 P: 2 AL: 143 QRS: -15 QRSD: 77 T: -81 QT: 271 QTc: 420 Interpretive Statements Sinus tachycardia Borderline left axis deviation Consider anterior infarct Electronically Signed On 07-14-2019 9:02:54 EDT by Seun Roy
[2019-07-14] MEDS: Metoprolol XL (24 HR) Succ 25 MG TAB.ER.24H PO SCH (09:44)
[2019-07-14] MEDS: amLODIPine 5 MG TABLET PO SCH (09:44)
[2019-07-14] MEDS: Insulin LISPRO 300 UNITS/3 ML VIAL SQ SCH ×4 (09:44→21:15)
--- NOTE | 2019-07-14 10:14 | Infectious Disease Consult ---
Infectious Disease-Consult - Encounter Date/Time Date of Encounter: 07/14/19 Time of Encounter: 10:09 - Data of Consult Patient: new to practice Reason for consult: "Gram postitive sepsis" Consult date: 07/14/19 Requesting Physician: Brook Monte MD Primary Care Provider: PCP NONE - HPI HPI: Ms. Zimmerman is a 59-year-old female with past medical history of diabetes, hyperlipidemia, hypertension, chronic kidney disease currently on hemodialysis, hypothyroidism. The patient was admitted to the hospital 07/11/19 for sepsis, end-stage renal disease on hemodialysis, and diabetes. We are consulted 07/14/19 for further workup and treatment recommendations for gram-positive bacteremia. Briefly, the patient is a 59-year-old female with past medical history as stated above. The patient states that the day of admission she was feeling generally unwell and had a fever dialysis. Upon arrival to the ER, she was febrile, tachycardic, and had leukocytosis. LFTs were normal. Lactic acid was elevated at 2.8. Urinalysis was negative. Chest x-ray was normal. Flu antigen swab was negative. Blood cultures were obtained 2 sets. She was started empirically on IV vancomycin and Zosyn and was admitted to the hospital for further evaluation. Since admission, the patient's white blood cell count has normalized. She had a MAXIMUM TEMPERATURE of 102.9, but has been afebrile for over 24 hours. Tachycardia has resolved. Lactic acidosis has normalized. Blood cultures obtained in the emergency department came back +2 out of 2 sets for staph epi. It is unclear if these were peripheral or cultures drawn from her permacath. Acute care surgery was consulted to assist with removal of her PO2 dialysis cath eter. Repeat blood cultures from 07/12/19 are pending 2 sets are no growth to date. She was taken to the operating room 07/13/19 where she underwent her total dialysis catheter removal. Intraoperative cultures were obtained and are pending. She had a transthoracic echocardiogram showed EF 60% and no valvular abnormalities. Currently, she is on IV vancomycin (day 4) and IV vancomycin (day 4). We have been asked to evaluate and make further recommendations. During my exam today, the patient somewhat of a poor historian. She tells me that she has been on hemodialysis for about 2 months. She is unsure why her peritoneal dialysis catheter had not been removed previously. She tells me that she is from [place] and is currently living in an extended care facility here while she and her son undergo testing for possible kidney transplant to see if he is a match. She states that the day of admission and generally weak and started having fever with chills. She reports chronic headache and neck pain than her baseline. Reports some chest pain on admission that has resolved. Denies shortness of breath or cough. Reports some nausea, but no vomiting. She reports she has had a bowel movement daily and states that it was loose this morning. She states her appetite is good. Denies abdominal pain or urinary complaints. States she typically voids 4-5 times per day. Denies back, flank, joint, or extreme pain. Denies oral thrush or skin rashes. Denies any open sores. Denies any pain in her periods dialysis catheter site prior to admission. She denies any known redness or drainage from the site. I discussed the case with Dr. Gong with the nephrology team he tells me that the dialysis nurse was concerned because the right upper chest permacath appeared to have some purulent drainage from it when she assessed as on admission. The patient currently resides at a local extended care facility. She denies tobacco, alcohol, illicit drug use. Denies chronic infectious diseases. She has disabled and does not work. - ROS Review of Systems: All systems reviewed and no additional remarkable complaints except as stated. - Results CBC & Chem 7: 07/15/19 04:37 07/15/19 04:37 - Exam Vitals: Temp Pulse Resp BP Pulse Ox 98.1 F 65 16 111/72 96 07/14/19 07:49 07/14/19 07:49 07/14/19 07:49 07/14/19 07:49 07/14/19 07:49 Exam: Head: Atraumatic, normal inspection, normocephalic. Eye: EOMI, PERRLA, no scleral icterus noted. No psychotic conjunctival hemorrhage noted. ENT: Mucous membranes moist. No odontogenic infection noted. Neck: Normal inspection, no meningismus. Respiratory: Clear to auscultation. No rales, respiratory distress, rhonchi, or wheezes noted. Cardiovascular: Regular rate and rhythm, S1 and S2 audible. No murmurs, rubs, or gallops. GI: Soft, obese, normal bowel sounds. Nontender. Peritoneal dialysis catheter removal site noted to the left lower quadrant with old bloody drainage noted on the dressing. No surrounding erythema, warmth, tenderness, or active drainage. Packing noted to the lateral aspect of the incision. Marco A are intact. Extremities:No joint swelling, pedal edema, or tenderness noted. Back: Normal inspection. No vertebral tenderness noted. Neurological: Alert, oriented 3, no focal deficits. Psychiatric: normal affect, normal mood. Skin: Dry, intact, warm. Normal color. No rashes. No endocarditis stigmata noted. Additional findings: Permacath noted to the right upper chest with transparent dressing lifting. No surrounding erythema or drainage or tenderness noted. Atorvastatin Calcium [Lipitor] 20 mg PO DAILY 07/12/19 [History] B Complex W-C No.20/Folic Acid [Virt-Caps Softgel] 1 mg PO MOWEFR 07/12/19 [History] Calcitriol [Rocaltrol] 0.25 mcg PO DAILY 07/12/19 [History] Glucagon,Human Recombinant [Glucagen] 1 mg IM ONCE PRN 07/12/19 [History] Insulin LISPRO [Humalog Kwikpen U-100] 0 unit SQ TIDWM PRN 07/12/19 [History] Levothyroxine [Synthroid] 50 mcg PO QAM 07/12/19 [History] Linaclotide [Linzess] 290 mcg PO DAILY 07/12/19 [History] Metoprolol Succinate [Toprol Xl] 25 mg PO DAILY 07/12/19 [History] Topiramate [Topamax] 25 mg PO Q12H 07/12/19 [History] Tramadol HCl [Ultram] 50 mg PO Q8H PRN 07/12/19 [History] amLODIPine [Norvasc] 5 mg PO DAILY 07/12/19 [History] Allergy/AdvReac Type Severity Reaction Status Date / Time No Known Allergies Allergy Verified 06/23/19 06:10 - Assessment and Plan (1) Sepsis Current Visit: Yes Status: Acute Severe sepsis: Patient had 3 sepsis criteria with lactic acidosis on admission. Likely secondary to bacteremia. Improved. White blood cell count normalized. Fevers and tachycardia resolved. Lactic acidosis resolved. Blood cultures drawn 07/11/19 are +2 out of 2 sets for staph epi. Repeat blood cultures drawn 07/12/19 are no growth to date 2 sets. Qualifiers: Sepsis type: sepsis due to unspecified organism Sepsis acute organ dysfunction status: unspecified Qualified Code(s): A41.9 - Sepsis, unspecified organism SNOMED Code(s): 02763142 (2) Bacteremia Current Visit: Yes Status: Acute Causative organism: S. epi. Source: PD catheter vs. Perma-cath. Blood cultures drawn 07/11/19 are +2 out of 2 sets for staph epi. Repeat blood cultures drawn 07/12/19 are no growth to date 2 sets. Discussed with nephrology who states HD nurse noted drainage around perma-cath site. No endocarditis stigmata noted on exam. Currently on IV Vancomycin. (day 4). SNOMED Code(s): 0865887 (3) Peritoneal dialysis catheter exit site infection Current Visit: Yes Status: Suspected Per ACS note, no signs of infection noted prior to removal. No imaging of the abdomen performed prior to removal. Status post removal 07/13/[address] Durant. Intra-op cultures are pending. Currently on IV Vanc. Qualifiers: Encounter type: initial encounter Qualified Code(s): T85.71XA - Infection and inflammatory reaction due to peritoneal dialysis catheter, initial encounter SNOMED Code(s): 112057024 (4) ESRD on dialysis Current Visit: Yes Status: Acute SNOMED Code(s): 786436465 (5) Diabetes mellitus Current Visit: Yes Status: Acute Recommend aggressive glucose monitoring and control. Management per the primary team. Qualifiers: Diabetes mellitus type: type 2 Diabetes mellitus mcfp insulin use: without electrical appliance mechanic use Diabetes mellitus complication status: with other specified complication Qualified Code(s): E11.69 - Type 2 diabetes mellitus with other specified complication SNOMED Code(s): 30869604 - Recommendations Recommendations: Await repeat cultures to finalize. ESRD management per the nephrology team. Recommend removal of Perma-cath for line holiday. Patient is due for HD today. REcommend removal of line after HD today and re-insertion of new line on Sunday since CONS typically are not virulent and removal of the line should be considered adequate treatment. Continue Vancomycin IV for now. Pharmacy to dose. Goal trough ~15. Duration of treatment depends on the clinical picture. Can likely discontinue after Perma-cath removed. Monitor labs and dose-adjust antibiotics. Past Med Surg Social Fam HX - Past Medical History Attestation: Yes The following information was validated with the patient. Source: patient, old records reviewed, nursing notes reviewed Medical history: diabetes, hyperlipidemia, hypertension, renal disease, thyroid disease Psychiatric history: no psych history - Past Surgical History Surgical History: cholecystectomy Additional surgical history: permicath, PD cath, hysterectomy - Social History Smoking Status: Never smoker Smokeless Tobacco Status: No Alcohol use: none Drug use: none Occupational status: disabled Current living situation: ECF Activity Level: Uses cane/walker Recent Out of Country Travel Within the Last 8 Weeks: No Exposure or Possible Exposure to Illness During Travel: No - Family History Sister Hx Family Endocrine Disorder: Yes (ESRD, diabetes) Consult Discharge Plan - Plan Additional Instructions: Daily packing changes as ordered. Follow up in acute care surgery clinic in 1-2 weeks. Call [phone] for appt. Referrals: Kamilah Marin [Partnered Physician] - NONE,PCP [Primary Care Provider] - - Attending Attestation I have personally performed a face to face evaluation on this patient. I have reviewed and agree with the care plan. History and Exam by me shows: This is an addendum to original report dictated by Key Cordero CNP. Please refer to Key's note for full detail. Agree with above history of present illness, review of system and physical exam findings. Assessment and plan: Sepsis Bacteremia Peritoneal dialysis catheter exit site infection End-stage renal disease on hemodialysis Diabetes mellitus type 2 Recommendations Source of bacteremia is an infected dialysis catheter. Nursing tells us that there was purulence around it when patient came in. I think that is our culprit of the source. They also scattered needs to come out. Duration of treatment probably 5-7 days after dialysis catheter is removed.
--- NOTE | 2019-07-14 10:32 | Electrocardiograph Report ---
[place] [id number] Test Date: 2019-07-12 Pat Name: Selam Zimmerman Department: 112 Room: 2A Gender: F Visual Merchandising Coordinator: [facility] : 1960 Requested By: Brook Monte Order Number: [id number] Reading MD: Seun Roy Measurements Intervals [place] Rate: 144 P: 64 MD: 146 QRS: -7 QRSD: 82 T: 24 QT: 276 QTc: 359 Interpretive Statements SINUS TACHYCARDIA Electronically Signed On 07-14-2019 10:30:33 EDT by Seun Roy
--- NOTE | 2019-07-14 12:11 | Nephrology Progress Note ---
Date of Encounter: 07/14/19 Time of Encounter: 12:10 - Assessment and Plan (1) ESRD on dialysis Current Visit: Yes Status: Acute MWF at [facility]. HD ordered for today. Avoid nephrotoxins and renal dose. Strict I/O Daily weights. Renal diet when able to eat. Spoke with ID, recommend removing tunneled cath after HD today 07/14/19 and r eplacing it 07/16/19. IR consulted and aware of both procedures. (2) Sepsis Current Visit: Yes Status: Acute Abx as per primary and ID. Qualifiers: Sepsis type: sepsis due to unspecified organism Sepsis acute organ dysfunction status: unspecified Qualified Code(s): A41.9 - Sepsis, unspecified organism (3) Peritoneal dialysis catheter exit site infection Current Visit: Yes Status: Suspected See above. Qualifiers: Encounter type: initial encounter Qualified Code(s): T85.71XA - Infection and inflammatory reaction due to peritoneal dialysis catheter, initial encounter (4) Anemia Current Visit: Yes Status: Acute Likely acute on chronic. She has multifactorial potential etiologies, including postop and anemia of chronic disease. Goal hemoglobin is 10-11. Hgb is 8.1, stable but not yet goal. Aranesp ordered. Qualifiers: Anemia type: unspecified type Qualified Code(s): D64.9 - Anemia, unspecified Subjective Principal diagnosis: ESRD Interval history: Pt seen and examined, is doing well. Denies any pain. Denies shortness of breath or chest pain. Denies nausea, vomiting, diarrhea. Requests some shraddha luiza. Objective - Vital Signs Vital signs: Vital Signs Temp Pulse Resp BP Pulse Ox 07/14/19 12:00 97.4 F L 64 16 122/80 94 07/14/19 07:49 98.1 F 65 16 111/72 96 07/14/19 04:34 98.0 F 70 16 124/82 98 07/14/19 00:48 98.4 F 68 16 109/64 96 07/13/19 21:33 98.0 F 76 16 118/70 94 07/13/19 16:02 98.2 F 80 16 107/74 96 07/13/19 14:00 81 16 102/71 92 07/13/19 12:50 88 16 98/65 90 Intake and Output 07/13/19 07/14/19 07/14/19 23:59 07:59 15:59 Intake Total 340 / 660 340 / 340 Balance 340 / 650 340 / 340 Intake: IV Fluids 100 / 100 100 / 100 Zosyn 3.375 GM In 0.9 % Sodium 100 / 100 100 / 100 Chloride (Mini-Bag +) 100 ML @ 25 mls/hr IVPB Q12HR GLEN Rx#: [id number] Oral 240 / 560 240 / 240 Other: Meal Dinner Percent of Meal Consumed 100% Stool Size Large Stool Consistency liquid soft Stool Color Brown # Voids 1 # Bowel Movements 1 # Bowel Movement Diapers 1 Weight 104.6 kg Blood Glucose* 279 173 132 Patient Weight 07/14/19 23:59 Weight 104.6 kg - General Appearance General appearance: Present: well-developed, well-nourished EENT: Present: ATNC, hearing intact, vision intact Neck: Present: supple Respiratory: Present: clear Cardiology: Present: no edema, normal S1, normal S2 Dialysis Vascular Access: Venous Catheter (DRSPhilipp C/D/I) Additional Comments: DANAG C/D/I for permcath. DRSG C/D/I from PD cath removal. Gastrointestinal: Present: normoactive bowel sounds, no tenderness, no guarding Integumentary: Present: no rash, warm and dry Neurologic: Present: alert and oriented x3 Musculoskeletal: Present: no deformities, no erythema Psychiatric: Present: mood/affect appropriate, cooperative - Lab 07/14/19 06:18 07/14/19 06:18 Most recent lab results 07/14/19 06:18 Calcium 8.7 Consult Discharge Plan - Plan Additional Instructions: Daily packing changes as ordered. Follow up in acute care surgery clinic in 1-2 weeks. Call [phone] for appt. Referrals: Kamilah Marin [Partnered Physician] - NONE,PCP [Primary Care Provider] -
--- NOTE | 2019-07-14 12:13 | Internal Med Progress Note ---
Hospitalist Progress Note - Encounter Date of Encounter: 07/14/19 Time of Encounter: 08:35 - Subjective Interval History: No acute events. Patient seen and examined. She denies abdominal pain, fever and chills. States that she is feeling much better overall. - Exam Vitals: Temp Pulse Resp BP Pulse Ox 36.3 C L 64 16 122/80 94 07/14/19 12:00 07/14/19 12:00 07/14/19 12:00 07/14/19 12:00 07/14/19 12:00 Exam: GENERAL: Not in distress. Alert and Oriented HEENT: EOMI, PERRLA MOUTH: Moist oral mucosa NECK:No JVD, No lymph nodes. CHEST AND LUNGS: Normal breath sounds, no wheezes or crackles HEART: S1 and S2 normal, no murmurs ABDOMEN: Soft, nontender, no organomegaly. Peritoneal dialysis site covered with clean surgical dressing. SKIN: Normal color, no rahses, no lesions EXTREMITIES: No deformity, no edema, no tenderness, no joint swelling or clubbing NEUROLOGICAL: Normal cognition, normal motor and sensory exam. - Assessment and Plan (1) Sepsis Current Visit: Yes Status: Acute Assessment and Plan: Patient presented with fever, leukocytosis and hypotension. WBC now 8.3<10.1 No fever in over 24 hours. Preliminary blood culture results positive for staph epidermidis We will continue vancomycin and Zosyn Monitor vitals Echo pending ID on board. (2) ESRD on dialysis Current Visit: Yes Status: Acute Assessment and Plan: Dialysis sunday, sunday and sunday. Seen by nephrology. Next dialysis session is today. (3) Diabetes mellitus Current Visit: Yes Status: Acute Assessment and Plan: Patient is not an insulin dependent diabetic Monitor sugars Q6H Diabetic diet/ NPO after midnight Low dose insulin sliding scale as needed Hold home meds. (4) DVT prophylaxis Current Visit: Yes Status: Acute Assessment and Plan: SCDs - Time Spent with Patient Total time spent is greater than 50% in coordination of care (as documented) at patient's floor/unit and/or counseling patient: Internal Medicine: Result - Labs CBC & Chem 7: 07/14/19 06:18 07/14/19 06:18 Labs: Short CBC 07/14/19 Range/Units 06:18 WBC 8.3 (4.3-11.1) K/mcL Hgb 8.1 L (11.5-15.4) g/dL Hct 25.4 L (35.3-44.9) % Plt Count 184 (140-400) K/mcL [facility] 07/14/19 06:18 Sodium 133 L Potassium 5.9 H Chloride 100 Carbon Dioxide 22 L BUN 62 H Creatinine 11.82 H Glucose 182 H Calcium 8.7 - ABG Interpretation ABG results: PT/INR, D-dimer PT 12.7 Seconds (9.4-12.1) H 07/11/19 16:55 - Impressions Impressions Echocardiogram 07/14/19 07:00 Impressions: LVEF 60%. Mild left ventricular diastolic dysfunction. Normal right ventricular structure and function. No significant valvular dysfunction. No pulmonary hypertension. Left Ventricular Wall Motion: Rest Echo Findings All wall segments showed normal motion. Findings: Study Quality * Technically adequate exam. ECG Findings * Normal sinus rhythm. Left Ventricle * LVEF 60%. * Normal LV chamber size, wall thickness and function. * Mild left ventricular diastolic dysfunction. Right Ventricle * Normal right ventricular structure and function. Left Atrium * Normal left atrial size. Right Atrium * Normal right atrial size. Aortic Valve * No aortic regurgitation. * Trileaflet aortic valve. * No aortic stenosis. * Mildly calcified aortic valve leaflets. Mitral Valve * Normal mitral valve structure. * No mitral stenosis. * Trace mitral regurgitation. Tricuspid Valve * Tricuspid valve not well visualized. * No tricuspid regurgitation. Pulmonic Valve * Pulmonic valve is not well visualized. * No pulmonic stenosis. * No pulmonic regurgitation. Pulmonary Artery * Pulmonary artery not well visualized. Aorta * Normally sized aortic root. Pericardium * There is no pericardial effusion present. Consult Discharge Plan - Plan Additional Instructions: Daily packing changes as ordered. Follow up in acute care surgery clinic in 1-2 weeks. Call [phone] for appt. Referrals: Kamilah Marin [Partnered Physician] - NONE,PCP [Primary Care Provider] - (1) Sepsis Qualifiers: Qualified Code(s): A41.9 - Sepsis, unspecified organism (3) Diabetes mellitus Qualifiers: Qualified Code(s): E11.69 - Type 2 diabetes mellitus with other specified complication
--- NOTE | 2019-07-14 15:17 | IR Progress Note ---
Vital Signs: Vital Signs/O2 Sat, Most Current Temp Pulse Resp BP Pulse Ox 97.4 F L 64 16 122/80 94 07/14/19 12:00 07/14/19 12:00 07/14/19 12:00 07/14/19 12:00 07/14/19 12:00 Recent Labs: Lab Results 07/14/19 07/14/19 07/13/19 06:18 06:18 05:51 WBC 8.3 RBC 2.65 L Hgb 8.1 L Hct 25.4 L MCV 95.8 MCH 30.6 MCHC 31.9 RDW 16.4 H Plt Count 184 MPV 10.5 Neutrophils # Lymphocytes # Monocytes # Eosinophils # Basophils # Sodium 133 L 137 Potassium 5.9 H 4.9 Chloride 100 98 Carbon Dioxide 22 L 23 BUN 62 H 41 H Creatinine 11.82 H 9.83 H Est GFR ( Amer) 4 L 5 L Est GFR (Non-Af Amer) 3 L 4 L BUN/Creatinine Ratio 5 L 4 L Glucose 182 H 157 H Lactic Acid Calcium 8.7 9.1 Phosphorus Magnesium 07/13/19 07/12/19 07/12/19 05:51 03:10 03:10 WBC 10.1 11.6 H RBC 2.90 L 3.04 L Hgb 8.9 L 9.1 L D Hct 27.6 L 29.1 L MCV 95.2 95.7 MCH 30.7 29.9 MCHC 32.2 31.3 L RDW 16.5 H 16.6 H Plt Count 152 110 L MPV 10.9 11.0 Neutrophils # Lymphocytes # Monocytes # Eosinophils # Basophils # Sodium 134 L Potassium 5.1 Chloride 98 Carbon Dioxide 24 BUN 20 Creatinine 6.11 H Est GFR ( Amer) 8 L Est GFR (Non-Af Amer) 7 L BUN/Creatinine Ratio 3 L Glucose 173 H Lactic Acid Calcium 8.4 L Phosphorus 5.9 H Magnesium 1.8 07/11/19 07/11/19 07/11/19 21:08 16:55 16:55 WBC RBC Hgb Hct MCV MCH MCHC RDW Plt Count MPV Neutrophils # Lymphocytes # Monocytes # Eosinophils # Basophils # Sodium 134 L Potassium 4.2 Chloride 95 L Carbon Dioxide 24 BUN 13 Creatinine 4.30 H Est GFR ( Amer) 13 L Est GFR (Non-Af Amer) 10 L BUN/Creatinine Ratio 3 L Glucose 215 H Lactic Acid 1.1 2.8 H Calcium 9.1 Phosphorus 2.4 L Magnesium 1.6 07/11/19 16:55 WBC 12.4 H RBC 3.61 L Hgb 10.9 L Hct 34.0 L MCV 94.2 MCH 30.2 MCHC 32.1 RDW 16.4 H Plt Count 121 L MPV 10.7 Neutrophils # 10.4 H Lymphocytes # 1.0 Monocytes # 0.8 Eosinophils # 0.0 Basophils # 0.0 Sodium Potassium Chloride Carbon Dioxide BUN Creatinine Est GFR ( Amer) Est GFR (Non-Af Amer) BUN/Creatinine Ratio Glucose Lactic Acid Calcium Phosphorus Magnesium Assessment and Plan Bacteremia with question sepsis on admission referred for removal tunneled dialysis catheter. She is currently in dialysis until 6pm. Plan to remove permacath in morning. Discussed with Meghan Loaiza. Also would consider exchanging catheter as opposed to removal. Will touch base with ID. If removed then will not be able to place a new permacath until bacteremia resolves with negative blood cultures. Could place temporary catheter in interim.
[2019-07-14] MEDS ORDERED: Renal Vitamin 1 CAP CAPSULE PO SCH (17:00)
[2019-07-14] MEDS ORDERED: Vancomycin 500 MG in 0.9 % Sodium Chloride Mini Bag 100 ML IVPB ONE (17:00)
[2019-07-14] MEDS: Renal Vitamin 1 CAP CAPSULE PO SCH (18:47)
[2019-07-15] MEDS: Topiramate 25 MG TABLET PO SCH ×2 (04:29→17:38)
[2019-07-15 05:10] LABS: Hematocrit 28.6 % (35.3-44.9); Hemoglobin 9.1 g/dL (11.5-15.4); Mean Corpuscular HGB Conc 31.8 g/dL (31.6-35.5); Mean Corpuscular Hemoglobin 30.2 pg (28.0-33.3); Platelet Count 213 K/mcL (140-400); Red Blood Count 3.01 M/mcL (3.82-4.97); Red Cell Distribution Width 16.6 % (11.5-14.5); White Blood Count 7.2 K/mcL (4.3-11.1)
[2019-07-15] MEDS: Piperacillin/Tazobactam 3.375 GM in 0.9 % Sodium Chloride Mini Bag 100 ML IVPB SCH (05:57)
[2019-07-15 05:58] LABS: Calcium 8.5 mg/dL (8.6-10.3); Potassium 4.3 mEq/L (3.5-5.1)
[2019-07-15] MEDS: Insulin LISPRO 300 UNITS/3 ML VIAL SQ SCH ×4 (09:04→20:25)
[2019-07-15] MEDS: amLODIPine 5 MG TABLET PO SCH (09:06)
[2019-07-15] MEDS: Metoprolol XL (24 HR) Succ 25 MG TAB.ER.24H PO SCH (09:06)
--- NOTE | 2019-07-15 09:23 | Nephrology Progress Note ---
Date of Encounter: 07/15/19 Time of Encounter: 09:20 - Assessment and Plan (1) ESRD on dialysis Current Visit: Yes Status: Acute MWF at [facility]. HD completed yesterday. Avoid nephrotoxins and renal dose. Strict I/O Daily weights. Renal diet when able to eat. Spoke with IR plan to remove Tunneled line today or an over the guide wire exchange. Encouraged them to speak with ID for recommendations on line holiday vs placing a new tunneled line vs. placing temp line. (2) Sepsis Current Visit: Yes Status: Acute Abx as per primary and ID. Qualifiers: Sepsis type: sepsis due to unspecified organism Sepsis acute organ dysfunction status: unspecified Qualified Code(s): A41.9 - Sepsis, unspecified organism (3) Peritoneal dialysis catheter exit site infection Current Visit: Yes Status: Suspected Removed on 07/13/19. Qualifiers: Encounter type: initial encounter Qualified Code(s): T85.71XA - Infection and inflammatory reaction due to peritoneal dialysis catheter, initial encounter (4) Anemia Current Visit: Yes Status: Acute Likely acute on chronic. She has multifactorial potential etiologies, including postop and anemia of chronic disease. Goal hemoglobin is 10-11. Hgb is 9.1 , stable but not yet goal. Aranesp ordered. Qualifiers: Anemia type: unspecified type Qualified Code(s): D64.9 - Anemia, unspecifi ed Subjective Principal diagnosis: ESRD Interval history: Pt seen and examined, is doing well. Denies any pain. Denies shortness of breath or chest pain. Denies nausea, vomiting, diarrhea. Objective - Vital Signs Vital signs: Vital Signs Temp Pulse Resp BP Pulse Ox 07/15/19 06:52 98.7 F 78 14 104/65 96 07/15/19 04:06 98.6 F 78 14 118/76 95 07/14/19 23:33 98.6 F 79 15 110/72 93 07/14/19 20:20 98.1 F 82 16 111/77 95 07/14/19 18:00 98.7 F 18 133/77 07/14/19 17:40 121/70 07/14/19 17:25 133/73 07/14/19 17:10 119/69 07/14/19 16:55 122/70 07/14/19 16:40 124/73 07/14/19 16:25 119/67 07/14/19 16:10 138/68 07/14/19 15:55 146/72 07/14/19 15:40 126/78 07/14/19 15:25 127/82 07/14/19 15:10 122/73 07/14/19 14:55 131/74 07/14/19 14:40 136/71 07/14/19 14:25 128/76 07/14/19 14:10 97.9 F 18 125/76 07/14/19 12:00 97.4 F L 64 16 122/80 94 Intake and Output 07/14/19 07/15/19 07/15/19 23:59 07:59 15:59 Intake Total 100 / 1520 100 / 100 Output Total 3600 / 3600 Balance -3500 / -2080 100 / 100 Intake: IV Fluids 100 / 200 100 / 100 Zosyn 3.375 GM In 0.9 % Sodium 100 / 200 100 / 100 Chloride (Mini-Bag +) 100 ML @ 25 mls/hr IVPB Q12HR [facility] Rx#: [id number] Output: Urine 0 / 0 Total Dialysis (HD) Output 3600 / 3600 Other: Weight 102.3 kg Blood Glucose* 292 133 Hemodialysis Net Fluid Removed 3000 (mL) - General Appearance General appearance: Present: well-developed, well-nourished EENT: Present: ATNC, hearing intact, vision intact Neck: Present: supple Respiratory: Present: clear Cardiology: Present: no edema, normal S1, normal S2 Dialysis Vascular Access: Venous Catheter (DRSG C/D/I) Gastrointestinal: Present: normoactive bowel sounds, no tenderness, no guarding Integumentary: Present: no rash, warm and dry Neurologic: Present: alert and oriented x3 Musculoskeletal: Present: no deformities, no erythema Psychiatric: Present: mood/affect appropriate, cooperative - Lab 07/15/19 04:37 07/15/19 04:37 Most recent lab results 07/15/19 04:37 Calcium 8.5 L Consult Discharge Plan - Plan Additional Instructions: Daily packing changes as ordered. Follow up in acute care surgery clinic in 1-2 weeks. Call [phone] for appt. Referrals: Kamilah Marin [Partnered Physician] - NONE,PCP [Primary Care Provider] -
--- NOTE | 2019-07-15 11:02 | Internal Med Progress Note ---
Hospitalist Progress Note - Encounter Date of Encounter: 07/15/19 Time of Encounter: 07:40 - Subjective Interval History: Is not seen and examined today. She is not in acute distress. She denies abdominal pain, fever, chills and vomiting. - Exam Vitals: Temp Pulse Resp BP Pulse Ox 37.1 C 78 14 104/65 96 07/15/19 06:52 07/15/19 06:52 07/15/19 06:52 07/15/19 06:52 07/15/19 06:52 Exam: GENERAL: Not in distress. Alert and Oriented HEENT: EOMI, PERRLA MOUTH: Moist oral mucosa NECK:No JVD, No lymph nodes. CHEST AND LUNGS: Normal breath sounds, no wheezes or crackles HEART: S1 and S2 normal, no murmurs ABDOMEN: Soft, nontender, no organomegaly. Peritoneal dialysis site covered with clean surgical dressing. SKIN: Normal color, no rahses, no lesions EXTREMITIES: No deformity, no edema, no tenderness, no joint swelling or clubbing NEUROLOGICAL: Normal cognition, normal motor and sensory exam. - Assessment and Plan (1) Sepsis Current Visit: Yes Status: Acute Assessment and Plan: Patient presented with fever, leukocytosis and hypotension. WBC now 8.3<10.1 No fever in over 24 hours. Preliminary blood culture results positive for staph epidermidis We will continue vancomycin and Zosyn Monitor vitals Echo: LVEF 60%. Mild Left ventricular diastolic dysfunction. Normal right ventricular structure and function. No significant valvular dysfunction. No pulmonary congestion. Patient due for removal of tunneled catheter by IR today (2) ESRD on dialysis Current Visit: Yes Status: Acute Assessment and Plan: Dialysis sunday, sunday and sunday. Seen by nephrology. We will receive dialysis per usual schedule. (3) Diabetes mellitus Current Visit: Yes Status: Acute Assessment and Plan: Patient is not an insulin dependent diabetic Monitor sugars Q6H Diabetic diet/ NPO after midnight Low dose insulin sliding scale as needed Hold home meds. (4) DVT prophylaxis Current Visit: Yes Status: Acute Assessment and Plan: SCDs - Time Spent with Patient Total time spent is greater than 50% in coordination of care (as documented) at patient's floor/unit and/or counseling patient: Internal Medicine: Result - Labs CBC & Chem 7: 07/15/19 04:37 07/15/19 04:37 Labs: Short CBC 07/15/19 Range/Units 04:37 WBC 7.2 (4.3-11.1) K/mcL Hgb 9.1 L (11.5-15.4) g/dL Hct 28.6 L (35.3-44.9) % Plt Count 213 (140-400) K/mcL BMP 07/15/19 04:37 Sodium 139 Potassium 4.3 D Chloride 99 Carbon Dioxide 26 BUN 33 H Creatinine 7.58 H Glucose 119 H Calcium 8.5 L - ABG Interpretation ABG results: PT/INR, D-dimer PT 12.7 Seconds (9.4-12.1) H 07/11/19 16:55 Consult Discharge Plan - Plan Additional Instructions: Daily packing changes as ordered. Follow up in acute care surgery clinic in 1-2 weeks. Call [phone] for appt. Referrals: Kamilah Marin [Partnered Physician] - NONE,PCP [Primary Care Provider] - (1) Sepsis Qualifiers: Sepsis type: sepsis due to unspecified organism Sepsis acute organ dysfunction status: unspecified Qualified Code(s): A41.9 - Sepsis, unspecified organism (3) Diabetes mellitus Qualifiers: Diabetes mellitus type: type 2 Diabetes mellitus middle or intermediate school principal insulin use: without middle or intermediate school principal use Diabetes mellitus complication status: with other specified complication Qualified Code(s): E11.69 - Type 2 diabetes mellitus with other specified complication
--- NOTE | 2019-07-15 12:37 | Infectious Disease Progress No ---
ID Progress Note Date of Encounter: 07/15/19 Time of Encounter: 12:34 - Subjective Subjective: Patient seen and examined. No acute events noted overnight. Patient states she is hungry and wants something to eat. Denies fevers, chills, or rigors. Denies chest pain, shortness of breath, or cough. Denies nausea, vomiting, or diarrhea. Denies abdominal pain. Denies oral thrush or skin rashes. Currently NPO for perma-cath removal later today. - Objective CBC & Chem 7: 07/16/19 04:29 07/16/19 04:29 - Exam Vitals: Temp Pulse Resp BP Pulse Ox 98.2 F 76 18 121/73 96 07/15/19 11:33 07/15/19 11:33 07/15/19 11:33 07/15/19 11:33 07/15/19 11:33 Exam: Head: Atraumatic, normal inspection, normocephalic. Eye: EOMI, PERRLA, no scleral icterus noted. No subconjunctival hemorrhage noted. ENT: Mucous membranes moist. No odontogenic infection noted. Neck: Normal inspection, no meningismus. Respiratory: Clear to auscultation. No rales, respiratory distress, rhonchi, or wheezes noted. Cardiovascular: Regular rate and rhythm, S1 and S2 audible. No murmurs, rubs, or gallops. GI: Soft, obese, normal bowel sounds. Nontender. Peritoneal dialysis catheter removal site noted to the left lower quadrant with dressing C/D/I. No surrounding erythema, warmth, tenderness, or active drainage. Extremities: No joint swelling, pedal edema, or tenderness noted. Back: Normal inspection. No vertebral tenderness noted. Neurological: Alert, oriented 3, no focal deficits. Psychiatric: normal affect, normal mood. Skin: Dry, intact, warm. Normal color. No rashes. No endocarditis stigmata noted. Additional findings: Permacath noted to the right upper chest with transparent dressing C/D/I. No surrounding erythema or drainage or tenderness noted. - Assessment and Plan (1) Sepsis Current Visit: Yes Status: Acute Severe sepsis: Patient had 3 sepsis criteria with lactic acidosis on admission. Likely secondary to bacteremia. Improved. White blood cell count normalized. Fevers and tachycardia resolved. Lactic acidosis resolved. Blood cultures drawn 07/11/19 are +2 out of 2 sets for staph epi. Repeat blood cultures drawn 07/12/19 are no growth to date 2 sets. Additional blood cultures drawn 07/14/19 are pending x 2 sets. Qualifiers: Sepsis type: sepsis due to unspecified organism Sepsis acute organ dysfunction status: unspecified Qualified Code(s): A41.9 - Sepsis, unspecified organism SNOMED Code(s): 92003232 (2) Bacteremia Current Visit: Yes Status: Acute Causative organism: S. epi. Source: PD catheter vs. Perma-cath. Blood cultures drawn 07/11/19 are +2 out of 2 sets for staph epi. Repeat blood cultures drawn 07/12/19 are no growth to date 2 sets. Repeat blood cultures drawn 07/14/19 are pending x 2 sets. Discussed with nephrology who states HD nurse noted drainage around perma-cath site. No endocarditis stigmata noted on exam. IR consulted for Perma-cath removal later today. Currently on IV Vancomycin. (day 5). SNOMED Code(s): 3073522 (3) Peritoneal dialysis catheter exit site infection Current Visit: Yes Status: Suspected Per ACS note, no signs of infection noted prior to removal. No imaging of the abdomen performed prior to removal. Status post removal 07/13/[address] Durant. Intra-op cultures are no growth. Currently on IV Vanc. Qualifiers: Encounter type: initial encounter Qualified Code(s): T85.71XA - Infection and inflammatory reaction due to peritoneal dialysis catheter, initial encounter SNOMED Code(s): 046578253 (4) ESRD on dialysis Current Visit: Yes Status: Acute Nephrology consulted and following. SNOMED Code(s): 286441698 (5) Diabetes mellitus Current Visit: Yes Status: Acute Recommend aggressive glucose monitoring and control. Management per the primary team. Qualifiers: Diabetes mellitus type: type 2 Diabetes mellitus predatory animal exterminator insulin use: without jail use Diabetes mellitus complication status: with other specified complication Qualified Code(s): E11.69 - Type 2 diabetes mellitus with other specified complication SNOMED Code(s): 19027342 - Recommendations Recommendations: Await repeat cultures to finalize. ESRD management per the nephrology team. Recommend removal of Perma-cath for line holiday. Scheduled for removal later today. From an ID perspective, can have new Perma-cath placed on Sunday since CONS typically are not virulent and removal of the line should be considered adequate treatment. Continue Vancomycin IV for now. Pharmacy to dose. Goal trough ~15. Duration of treatment depends on the clinical picture. Can likely discontinue after Perma-cath removed. Discussed with pharmacy. Monitor labs and dose-adjust antibiotics. Consult Discharge Plan - Plan Additional Instructions: Daily packing changes as ordered. Follow up in acute care surgery clinic in 1-2 weeks. Call [phone] for appt. Referrals: Kamilah Marin [Partnered Physician] - NONE,PCP [Primary Care Provider] - - Attending Attestation I have personally performed a face to face evaluation on this patient. I have reviewed and agree with the care plan. History and Exam by me shows: Assessment and plan: 1.Sepsis 2.Bacteremia 3.Peritoneal dialysis catheter exit site infection 4.End-stage renal disease on hemodialysis 5.Diabetes mellitus type 2 Recommendations: Continue vancomycin Dialysis permacath is to be removed Duration of treatment depends on the clinical picture likely 7 days Monitor labs for drug toxicity
[2019-07-16] MEDS: Topiramate 25 MG TABLET PO SCH ×2 (04:00→16:44)
[2019-07-16] MEDS: traMADol 50 MG TABLET PO PRN ×2 (04:00→14:46)
[2019-07-16 04:52] LABS: Hematocrit 26.7 % (35.3-44.9); Hemoglobin 8.5 g/dL (11.5-15.4); Mean Corpuscular HGB Conc 31.8 g/dL (31.6-35.5); Mean Corpuscular Hemoglobin 30.1 pg (28.0-33.3); Mean Corpuscular Volume 94.7 fL (83.0-100.0); Mean Platelet Volume 9.1 fL (9.4-12.4); Platelet Count 211 K/mcL (140-400); Red Blood Count 2.82 M/mcL (3.82-4.97); Red Cell Distribution Width 16.2 % (11.5-14.5); White Blood Count 6.9 K/mcL (4.3-11.1)
[2019-07-16 05:05] LABS: Calcium 8.6 mg/dL (8.6-10.3); Potassium 4.5 mEq/L (3.5-5.1)
[2019-07-16] MEDS: Insulin LISPRO 300 UNITS/3 ML VIAL SQ SCH ×4 (08:38→21:27)
[2019-07-16] MEDS: Metoprolol XL (24 HR) Succ 25 MG TAB.ER.24H PO SCH (08:40)
[2019-07-16] MEDS: amLODIPine 5 MG TABLET PO SCH (08:40)
--- NOTE | 2019-07-16 09:49 | Nephrology Progress Note ---
Date of Encounter: 07/16/19 Time of Encounter: 09:47 - Assessment and Plan (1) ESRD on dialysis Current Visit: Yes Status: Acute MWF at [facility]. HD completed 07/14/19 without complication. Will hold on HD today to give line holiday, permcath was removed 07/15/19 per IR. Will make NPO at midnight for perm cath vs temp line placement on 07/17/19. Repeat blood cultures on 07/12/19 are negative to date x 2 sets, ID okay with permcath tomorrow. Avoid nephrotoxins and renal dose. Strict I/O Daily weights. Renal diet until midnight tonight, NPO after. (2) Sepsis Current Visit: Yes Status: Acute Abx as per primary and ID. Qualifiers: Sepsis type: sepsis due to unspecified organism Sepsis acute organ dysfunction status: unspecified Qualified Code(s): A41.9 - Sepsis, unspecified organism (3) Peritoneal dialysis catheter exit site infection Current Visit: Yes Status: Suspected Removed on 07/13/19. Qualifiers: Encounter type: initial encounter Qualified Code(s): T85.71XA - Infection and inflammatory reaction due to peritoneal dialysis catheter, initial encounter (4) Anemia Current Visit: Yes Status: Acute Likely acute on chronic. She has multifactorial potential etiologies, including postop and anemia of chronic disease. Goal hemoglobin is 10-11. Hgb is 8.5 , stable but not yet goal. Aranesp ordered. Qualifiers: Anemia type: unspecified type Qualified Code(s): D64.9 - Anemia, unspecified Subjective Principal diagnosis: ESRD Interval history: Pt seen and examined, is doing well. Denies any pain. Denies shortness of breath or chest pain. Denies nausea, vomiting, diarrhea. Dr. Mendez and Michael Cordero CNP at bedside to discuss POC. Objective - Vital Signs Vital signs: Vital Signs Temp Pulse Resp BP Pulse Ox 07/16/19 06:57 98.5 F 84 16 118/69 97 07/16/19 03:26 98.6 F 80 18 113/70 98 07/15/19 23:07 98.2 F 78 17 132/76 98 07/15/19 18:35 98.5 F 86 17 134/81 98 07/15/19 16:09 97.7 F 75 16 129/84 99 07/15/19 11:33 98.2 F 76 18 121/73 96 Intake and Output 07/15/19 07/16/19 07/16/19 23:59 07:59 15:59 Intake Total 120 / 220 0 / 0 0 / 0 Balance 120 / 220 0 / 0 0 / 0 Intake: Oral 120 / 120 0 / 0 0 / 0 Other: Meal Breakfast Percent of Meal Consumed 0% Weight 101.8 kg Blood Glucose* 246 122 - General Appearance General appearance: Present: well-developed, well-nourished EENT: Present: ATNC, hearing intact, vision intact Neck: Present: supple Respiratory: Present: clear Cardiology: Present: no edema, normal S1, normal S2 Gastrointestinal: Present: normoactive bowel sounds, tenderness, no guarding Additional Comments: Slight pain with palpation near PD cath site removal. Integumentary: Present: no rash, warm and dry Neurologic: Present: alert and oriented x3 Musculoskeletal: Present: no deformities, no erythema Psychiatric: Present: mood/affect appropriate, cooperative - Lab 07/16/19 04:29 07/16/19 04:29 Most recent lab results 07/16/19 04:29 Calcium 8.6 Consult Discharge Plan - Plan Additional Instructions: Daily packing changes as ordered. Follow up in acute care surgery clinic in 1-2 weeks. Call [phone] for appt. Referrals: Kamilah Marin [Partnered Physician] - NONE,PCP [Primary Care Provider] -
--- NOTE | 2019-07-16 10:18 | Infectious Disease Progress No ---
ID Progress Note Date of Encounter: 07/16/19 Time of Encounter: 09:25 - Subjective Subjective: Patient seen and examined. No acute events noted overnight. Patient states she is hungry and wants something to eat. Currently NPO for possible temp HD line later today. Denies fevers, chills, or rigors. Denies chest pain, shortness of breath, or cough. Denies nausea, vomiting, or diarrhea. Denies abdominal pain. Denies oral thrush or skin rashes. Had Perma-cath removed 07/15/19. - Objective CBC & Chem 7: 07/17/19 04:55 07/17/19 04:55 - Exam Vitals: Temp Pulse Resp BP Pulse Ox 98.5 F 84 16 118/69 97 07/16/19 06:57 07/16/19 06:57 07/16/19 06:57 07/16/19 06:57 07/16/19 06:57 Exam: Head: Atraumatic, normal inspection, normocephalic. Eye: EOMI, PERRLA, no scleral icterus noted. No subconjunctival hemorrhage noted. ENT: Mucous membranes moist. No odontogenic infection noted. Neck: Normal inspection, no meningismus. Respiratory: Clear to auscultation. No rales, respiratory distress, rhonchi, or wheezes noted. Cardiovascular: Regular rate and rhythm, S1 and S2 audible. No murmurs, rubs, or gallops. GI: Soft, obese, normal bowel sounds. Nontender. Peritoneal dialysis catheter removal site noted to the left lower quadrant with dressing C/D/I. No surrounding erythema, warmth, tenderness, or active drainage. Extremities: No joint swelling, pedal edema, or tenderness noted. Back: Normal inspection. No vertebral tenderness noted. Neurological: Alert, oriented 3, no focal deficits. Psychiatric: normal affect, normal mood. Skin: Dry, intact, warm. Normal color. No rashes. No endocarditis stigmata noted. Additional findings: Permacath site noted to the right upper chest with transparent dressing C/D/I. No surrounding erythema or drainage or tenderness noted. - Assessment and Plan (1) Sepsis Current Visit: Yes Status: Acute Severe sepsis: Patient had 3 sepsis criteria with lactic acidosis on admission. Likely secondary to bacteremia. Improved. White blood cell count normalized. Fevers and tachycardia resolved. Lactic acidosis resolved. Blood cultures drawn 07/11/19 are +2 out of 2 sets for staph epi. Repeat blood cultures drawn 07/12/19 are no growth to date 2 sets. Additional blood cultures drawn 07/14/19 are NGTDx 2 sets. Qualifiers: Sepsis type: sepsis due to unspecified organism Sepsis acute organ dysfunction status: unspecified Qualified Code(s): A41.9 - Sepsis, unspecified organism SNOMED Code(s): 42911975 (2) Bacteremia Current Visit: Yes Status: Acute Causative organism: S. epi. Source: PD catheter vs. Perma-cath. Blood cultures drawn 07/11/19 are +2 out of 2 sets for staph epi. Repeat blood cultures drawn 07/12/19 are no growth to date 2 sets. Repeat blood cultures drawn 07/14/19 are NGTD x 2 sets. Discussed with nephrology who states HD nurse noted drainage around perma-cath site. No endocarditis stigmata noted on exam. Status post removal of Perma-cath 07/15/19. Currently on IV Vancomycin. (day 6). SNOMED Code(s): 3200656 (3) Peritoneal dialysis catheter exit site infection Current Visit: Yes Status: Suspected Per ACS note, no signs of infection noted prior to removal. No imaging of the abdomen performed prior to removal. Status post removal 07/13/[address] Durant. Intra-op cultures are no growth. Currently on IV Vanc. Qualifiers: Encounter type: initial encounter Qualified Code(s): T85.71XA - Infection and inflammatory reaction due to peritoneal dialysis catheter, initial encounter SNOMED Code(s): 101930574 (4) ESRD on dialysis Current Visit: Yes Status: Acute Nephrology consulted and following. Perma-cath removed 07/15/19. Planning to have line replaced 07/16/19. From ID perspective, can have Perma- cath. SNOMED Code(s): 500021184 (5) Diabetes mellitus Current Visit: Yes Status: Acute Recommend aggressive glucose monitoring and control. Management per the primary team. Qualifiers: Diabetes mellitus type: type 2 Diabetes mellitus halfway insulin use: without halfway use Diabetes mellitus complication status: with other specified complication Qualified Code(s): E11.69 - Type 2 diabetes mellitus with other specified complication SNOMED Code(s): 86451249 - Recommendations Recommendations: Await repeat cultures to finalize. ESRD management per the nephrology team. From an ID perspective, can have new Perma-cath placed when nephrology is ready to have line put back in since CONS typically are not virulent and removal of the line should be considered adequate treatment. Continue Vancomycin IV for now. Pharmacy to dose. Goal trough ~15. Discussed with pharmacy. Going to give the patient a dose today and then discontinue since Perma-cath has been removed. Monitor labs and dose-adjust antibiotics. No further recommendations from the ID team. We will sign off. Please re-consult if needed. Consult Discharge Plan - Plan Additional Instructions: Daily packing changes as ordered. Follow up in acute care surgery clinic in 1-2 weeks. Call [phone] for appt. Referrals: Kamilah Marin [Partnered Physician] - NONE,PCP [Primary Care Provider] - Prescriptions: Darbepoetin [Aranesp] 40 mcg SQ QWEEK #60 syringe - Attending Attestation I have personally performed a face to face evaluation on this patient. I have reviewed and agree with the care plan. History and Exam by me shows: Assessment and plan: 1.Sepsis 2.Bacteremia 3.Peritoneal dialysis catheter exit site infection 4.End-stage renal disease on hemodialysis 5.Diabetes mellitus type 2 REcommendations: ESRD management per the nephrology team. From an ID perspective, can have new Perma-cath placed when nephrology is ready to have line put back in since CONS typically are not virulent and removal of the line should be considered adequate treatment. Continue Vancomycin IV for now. Pharmacy to dose. Goal trough ~15. Discussed with pharmacy. Going to give the patient a dose today and then discontinue since Perma-cath has been removed.
--- NOTE | 2019-07-16 10:50 | Internal Med Progress Note ---
Hospitalist Progress Note - Encounter Date of Encounter: 07/16/19 Time of Encounter: 10:00 - Subjective Interval History: No acute events overnight - Exam Vitals: Temp Pulse Resp BP Pulse Ox 98.5 F 84 16 118/69 97 07/16/19 06:57 07/16/19 06:57 07/16/19 06:57 07/16/19 06:57 07/16/19 06:57 Exam: GENERAL: Not in distress. Alert and Oriented HEENT: EOMI, PERRLA MOUTH: Moist oral mucosa NECK:No JVD, No lymph nodes. CHEST AND LUNGS: Normal breath sounds, no wheezes or crackles HEART: S1 and S2 normal, no murmurs ABDOMEN: Soft, nontender, no organomegaly. Peritoneal dialysis site covered with clean surgical dressing. SKIN: Normal color, no rahses, no lesions EXTREMITIES: No deformity, no edema, no tenderness, no joint swelling or clubbing NEUROLOGICAL: Normal cognition, normal motor and sensory exam. - Assessment and Plan (1) Sepsis Current Visit: Yes Status: Acute Assessment and Plan: Patient presented with fever, leukocytosis and hypotension. WBC now 8.3<10.1 No fever in over 24 hours. Preliminary blood culture results positive for staph epidermidis Completed 6 days of vancomycin. Permacath removed on 07/15. Echo showed no vegetations Plan for placement of new tunneled cath in am by IR. Wilkins to d/c antibiotics per ID (2) ESRD on dialysis Current Visit: Yes Status: Acute Assessment and Plan: Dialysis sunday, sunday and sunday. Seen by nephrology. We will receive dialysis per usual schedule. (3) Diabetes mellitus Current Visit: Yes Status: Acute Assessment and Plan: Patient is not an insulin dependent diabetic Monitor sugars Q6H Diabetic diet/ NPO after midnight Low dose insulin sliding scale as needed Hold home meds. (4) DVT prophylaxis Current Visit: Yes Status: Acute Assessment and Plan: SCDs - Time Spent with Patient Total time spent is greater than 50% in coordination of care (as documented) at patient's floor/unit and/or counseling patient: Internal Medicine: Result - Labs CBC & Chem 7: 07/16/19 04:29 07/16/19 04:29 Labs: Short CBC 07/16/19 Range/Units 04:29 WBC 6.9 (4.3-11.1) K/mcL Hgb 8.5 L (11.5-15.4) g/dL Hct 26.7 L (35.3-44.9) % Plt Count 211 (140-400) K/mcL BMP 07/16/19 04:29 Sodium 136 Potassium 4.5 Chloride 98 Carbon Dioxide 26 BUN 47 H Creatinine 10.69 H Glucose 127 H Calcium 8.6 - ABG Interpretation ABG results: PT/INR, D-dimer PT 12.7 Seconds (9.4-12.1) H 07/11/19 16:55 - Impressions Impressions Chest X-Ray 07/11/19 16:52 IMPRESSION: No acute findings D/ / Eladia Solis MD / Eladia Solis MD Interpreting Provider: Eladia Solis MD Tunnelled Catheter Removal 07/15/19 00:00 IMPRESSION: Tunneled right internal jugular hemodialysis catheter removal D/ / Albert Patel MD / Albert Patel MD Interpreting Provider: Albert Patel MD Consult Discharge Plan - Plan Additional Instructions: Daily packing changes as ordered. Follow up in acute care surgery clinic in 1-2 weeks. Call [phone] for appt. Referrals: Kamilah Marin [Partnered Physician] - NONE,PCP [Primary Care Provider] - (1) Sepsis Qualifiers: Sepsis type: sepsis due to unspecified organism Sepsis acute organ dysfunction status: unspecified Qualified Code(s): A41.9 - Sepsis, unspecified organism (3) Diabetes mellitus Qualifiers: Diabetes mellitus type: type 2 Diabetes mellitus exterminator helper termite insulin use: without chcf use Diabetes mellitus complication status: with other specified complication Qualified Code(s): E11.69 - Type 2 diabetes mellitus with other specified complication
[2019-07-16] MEDS ORDERED: Aminoglycoside Consult 1 EACH MC ONE (13:40)
[2019-07-16] MEDS: Renal Vitamin 1 CAP CAPSULE PO SCH (16:44)
[2019-07-16] MEDS ORDERED: Vancomycin 500 MG in 0.9 % Sodium Chloride Mini Bag 100 ML IVPB ONE (17:00)
[2019-07-17] MEDS: Topiramate 25 MG TABLET PO SCH (04:11)
[2019-07-17 05:37] LABS: Hematocrit 26.5 % (35.3-44.9); Hemoglobin 8.5 g/dL (11.5-15.4); Mean Corpuscular HGB Conc 32.1 g/dL (31.6-35.5); Mean Corpuscular Hemoglobin 30.8 pg (28.0-33.3); Mean Platelet Volume 9.5 fL (9.4-12.4); Platelet Count 258 K/mcL (140-400); Red Blood Count 2.76 M/mcL (3.82-4.97); Red Cell Distribution Width 16.1 % (11.5-14.5); White Blood Count 7.2 K/mcL (4.3-11.1)
[2019-07-17 05:56] LABS: Calcium 8.4 mg/dL (8.6-10.3); Potassium 4.8 mEq/L (3.5-5.1)
[2019-07-17] MEDS ORDERED: 0.9 % Sodium Chloride 250 ML IVC PRN (07:06)
[2019-07-17] MEDS: Insulin LISPRO 300 UNITS/3 ML VIAL SQ SCH ×2 (08:56→12:59)
[2019-07-17] MEDS: Metoprolol XL (24 HR) Succ 25 MG TAB.ER.24H PO SCH (08:56)
[2019-07-17] MEDS: amLODIPine 5 MG TABLET PO SCH (08:57)
--- NOTE | 2019-07-17 11:33 | Nephrology Progress Note ---
Date of Encounter: 07/17/19 Time of Encounter: 11:31 - Assessment and Plan (1) ESRD on dialysis Current Visit: Yes Status: Acute MWF at [facility]. HD completed 07/14/19 without complication. Hopeful for permcath placement today. HD ordered for today. Avoid nephrotoxins and renal dose. Strict I/O Daily weights. Renal diet. (2) Sepsis Current Visit: Yes Status: Acute Abx as per primary and ID. Qualifiers: Sepsis type: sepsis due to unspecified organism Sepsis acute organ dysfunction status: unspecified Qualified Code(s): A41.9 - Sepsis, unspecified organism (3) Peritoneal dialysis catheter exit site infection Current Visit: Yes Status: Suspected Removed on 07/13/19. Qualifiers: Encounter type: initial encounter Qualified Code(s): T85.71XA - Infection and inflammatory reaction due to peritoneal dialysis catheter, initial encounter (4) Anemia Current Visit: Yes Status: Acute Likely acute on chronic. She has multifactorial potential etiologies, including postop and anemia of chronic disease. Goal hemoglobin is 10-11. Hgb is 8.5 , stable but not yet goal. Aranesp ordered. Qualifiers: Anemia type: unspecified type Qualified Code(s): D64.9 - Anemia, unspecified Subjective Principal diagnosis: ESRD Interval history: Pt seen and examined, is doing well. Denies any pain. Denies shortness of breath or chest pain. Denies nausea, vomiting, diarrhea. Objective - Vital Signs Vital signs: Vital Signs Temp Pulse Resp BP Pulse Ox 07/17/19 07:47 98.3 F 63 14 123/77 100 07/17/19 03:32 98 F 69 17 124/78 95 07/16/19 23:56 97.8 F 69 16 118/73 98 07/16/19 19:18 97.6 F 74 17 117/75 97 07/16/19 16:24 98.1 F 71 16 144/81 96 Intake and Output 07/16/19 07/17/19 07/17/19 23:59 07:59 15:59 Intake Total 250 / 250 0 / 0 Balance 250 / 250 0 / 0 Intake: IV Fluids 250 / 250 Vancocin 750 MG In 0.9 % Sodium 250 / 250 Chloride 250 ML @ 250 mls/hr IVPB ONCE ONE Rx#:[id number] Oral 0 / 0 0 / 0 Other: Weight 102.5 kg Blood Glucose* 157 118 Patient Weight 07/17/19 23:59 Weight 102.5 kg - General Appearance General appearance: Present: well-developed, well-nourished EENT: Present: ATNC, hearing intact, vision intact Neck: Present: supple Respiratory: Present: clear Cardiology: Present: no edema, normal S1, normal S2 Gastrointestinal: Present: normoactive bowel sounds, no tenderness, no guarding Integumentary: Present: no rash, warm and dry Neurologic: Present: alert and oriented x3 Musculoskeletal: Present: no deformities, no erythema Psychiatric: Present: mood/affect appropriate, cooperative - Lab 07/17/19 04:55 07/17/19 04:55 Most recent lab results 07/17/19 04:55 Calcium 8.4 L Consult Discharge Plan - Plan Additional Instructions: Daily packing changes as ordered. Follow up in acute care surgery clinic in 1-2 weeks. Call [phone] for appt. Referrals: Kamilah Marin [Partnered Physician] - NONE,PCP [Primary Care Provider] -
--- NOTE | 2019-07-17 12:34 | Discharge Summary ---
Date of Encounter: 07/17/19 Time of Encounter: 15:00 - Discharge Diagnosis (1) Sepsis Priority: Primary Status: Acute Assessment and Plan: 59 year old female patient presented to the ER with fever after completing her dialysis session. She has been on dialysis for about 6 months. Patient does not recall the events leading up to hospitalization, but according to the emergency department notes she developed generalized illness and fever after completing dialysis. She had reported fever of 104 at the dialysis center. She has not been feeling well for the last 2 days. Patient presented with fever, leukocytosis and hypotension secondary to sepsis. Preliminary blood culture results positive for staph epidermidis. She was noted to have an old peritoneal dialysis catheter which was removed by surgery as a possible source of infection. She completed 6 days of vancomycin. Echo showed no vegetations. She had placement of new tunneled cath in am by IR on 07/17 after a line holiday and temp line which she had for dialysis was taken out on 07/15. She tolerated procedure well and had dialysis with new line after which she was discharged in a stable condition. Okay to discontinue antibiotics per ID. 35 minutes was spent discharging this patient Qualifiers: Sepsis type: sepsis due to unspecified organism Sepsis acute organ dysfunction status: unspecified Qualified Code(s): A41.9 - Sepsis, unspecified organism (2) ESRD on dialysis Priority: Primary Status: Acute (3) Diabetes mellitus Priority: Primary Status: Acute Qualifiers: Diabetes mellitus type: type 2 Diabetes mellitus termite exterminator helper insulin use: without termite exterminator helper use Diabetes mellitus complication status: with other specified complication Qualified Code(s): E11.69 - Type 2 diabetes mellitus with other specified complication (4) DVT prophylaxis Priority: Primary Status: Acute Hospital course: Ms. Zimmerman is a 59 year old female - Time Spent with Patient Total time spent providing and/or coordinating discharge services: - Discharge Medications Prescriptions: New Darbepoetin [Aranesp] 40 mcg SQ QWEEK #60 syringe Continued amLODIPine [Norvasc] 5 mg PO DAILY Atorvastatin Calcium [Lipitor] 20 mg PO DAILY B Complex W-C No.20/Folic Acid [Virt-Caps Softgel] 1 mg PO MOWEFR Calcitriol [Rocaltrol] 0.25 mcg PO DAILY Glucagon,Human Recombinant [Glucagen] 1 mg IM ONCE PRN PRN Reason: Hypoglycemia Insulin LISPRO [Humalog Kwikpen U-100] 0 unit SQ TIDWM PRN PRN Reason: Sliding Scale Levothyroxine [Synthroid] 50 mcg PO QAM Linaclotide [Linzess] 290 mcg PO DAILY Metoprolol Succinate [Toprol Xl] 25 mg PO DAILY Topiramate [Topamax] 25 mg PO Q12H Tramadol HCl [Ultram] 50 mg PO Q8H PRN PRN Reason: Pain Home Medications: Atorvastatin Calcium [Lipitor] 20 mg PO DAILY 07/12/19 [History] B Complex W-C No.20/Folic Acid [Virt-Caps Softgel] 1 mg PO MOWEFR 07/12/19 [History] Calcitriol [Rocaltrol] 0.25 mcg PO DAILY 07/12/19 [History] Glucagon,Human Recombinant [Glucagen] 1 mg IM ONCE PRN 07/12/19 [History] Insulin LISPRO [Humalog Kwikpen U-100] 0 unit SQ TIDWM PRN 07/12/19 [History] Levothyroxine [Synthroid] 50 mcg PO QAM 07/12/19 [History] Linaclotide [Linzess] 290 mcg PO DAILY 07/12/19 [History] Metoprolol Succinate [Toprol Xl] 25 mg PO DAILY 07/12/19 [History] Topiramate [Topamax] 25 mg PO Q12H 07/12/19 [History] Tramadol HCl [Ultram] 50 mg PO Q8H PRN 07/12/19 [History] amLODIPine [Norvasc] 5 mg PO DAILY 07/12/19 [History] Darbepoetin [Aranesp] 40 mcg SQ QWEEK #60 syringe 07/17/19 [Rx] Allergies/Adverse Reactions: Allergy/AdvReac Type Severity Reaction Status Date / Time No Known Allergies Allergy Verified 06/23/19 06:10 Date of admission: 07/11/19 21:13 Primary care physician: PCP NONE Consults: 07/12/19 00:30 Consult to Nephrology [CONS] Routine Consulting Provider: Kidney Eneida/EARL/LE/KARENA Reason for Consult: ESRD Call Completed: No 07/12/19 02:20 Consult to Surgery [CONS] Routine Consulting Provider: Acute Care Surgery Reason for Consult: PD catheter removal Call Completed: No 07/12/19 13:49 Consult to Infectious Diseases [CONS] Routine Consulting Provider: Infectious Disease [place] Reason for Consult: Gram postitive sepsis Call Completed: No 07/14/19 07:45 Consult to Dialysis [CONS] ONCE 07/14/19 09:09 Consult to Nurse Navigator [CONS] Routine Comment: hd 07/14/19 10:45 Consult to [place] [CONS] Routine Reason for SW Consult: return to [facility] 07/14/19 13:28 Consult to Interventional Radiology [CONS] Routine Consulting Provider: Radiology Interventional Cols Reason for Consult: Please remove tunneled cath after HD today per ID. Please replace tunneled cath on Sunday07/16/19. Thanks! Time Notified: 13:29 Call Completed: Yes 07/17/19 07:15 Consult to Dialysis [CONS] DAILY 07/17/19 09:44 Consult to Interventional Radiology [CONS] Routine Consulting Provider: Radiology Interventional Cols Reason for Consult: Please place tunneled cath if able on 07/17/19. Repeat blood culture are negative to date, should finalize tomorrow. If unable please place temp line. Time Notified: 09:46 Call Completed: No 07/18/19 07:15 Consult to Dialysis [CONS] DAILY - Constitutional Vitals: Temp Pulse Resp BP Pulse Ox 98.3 F 63 14 123/77 100 07/17/19 07:47 07/17/19 07:47 07/17/19 07:47 07/17/19 07:47 07/17/19 07:47 General appearance: Present: cooperative, A&O X 3, pleasant, no acute distress, answers questions appropriately Exam: GENERAL: Not in distress. Alert and Oriented HEENT: EOMI, PERRLA MOUTH: Moist oral mucosa NECK:No JVD, No lymph nodes. CHEST AND LUNGS: Normal breath sounds, no wheezes or crackles HEART: S1 and S2 normal, no murmurs ABDOMEN: Soft, nontender, no organomegaly. Peritoneal dialysis site covered with clean surgical dressing. SKIN: Normal color, no rahses, no lesions EXTREMITIES: No deformity, no edema, no tenderness, no joint swelling or clubbing NEUROLOGICAL: Normal cognition, normal motor and sensory exam. - Patient Status Disposition: Home, Self-Care Condition: Good - Ambulatory Orders Ambulatory Orders: Pack Wounds With Time Frame: 14 Days, Facility: [facility], Location: Home Health Services Pack Wounds With Time Frame: 07/28/19, Facility: [facility], Location: Home Health Services - Discharge Instructions Follow Up With: Kamilah Marin [Partnered Physician] - NONE,PCP [Primary Care Provider] - Additional Instructions: Daily packing changes as ordered. Follow up in acute care surgery clinic in 1-2 weeks. Call [phone] for appt.
[2019-07-17] MEDS: traMADol 50 MG TABLET PO PRN (13:01)
[2019-07-17] MEDS ORDERED: Heparin 1,000 UNITS/500 mL 500 ML ONE (14:07)
[2019-07-17] MEDS ORDERED: *HR* Midazolam HCl 2 MG/2 ML VIAL IVP ONE (14:12)
[2019-07-17] MEDS ORDERED: *HR* FentaNYL (PF) 100 MCG/2 ML VIAL IVP ONE (14:12)
--- NOTE | 2019-07-17 14:13 | Pre-Sedation Evaluation ---
Pre-sedation evaluation - Pre-sedation checklist Date of procedure: 07/17/19 Procedure: Permacath placement Recent Vitals: Last Vital Signs Temp 98.4 F 07/17/19 12:41 Pulse 64 07/17/19 12:41 Resp 18 07/17/19 12:41 BP 137/84 07/17/19 12:41 Pulse Ox 96 07/17/19 12:41 H&P (including ROS) documented in medical record: Yes Previous reaction to sedatives/anesthetics: No Dietary Status: NPO after Midnight Airway Assessment: Patient can open mouth completely, TMJ function normal, Micrognathia (under-bite, receding chin) absent, Neck with adequate range of motion Dentition: dentures removed ASA Classification *see protocol: CLASS II-Mild systemic disease Plan of Care: Pt appropriate candidate for procedure/moderate/conscious sedation, Risks/benefits of procedure/sedation discussed w/ patient/family, If not NPO; Risk of intake outweiged by necessity to perform procedure
[2019-07-17] MEDS ORDERED: 0.9 % Sodium Chloride 500 ML ONE (14:20)
[2019-07-17] MEDS ORDERED: CeFAZolin Premix DUPLEX 2,000 MG/50 ML BAG IVPB ONE (14:30)
[2019-07-17] MEDS ORDERED: *HR* Heparin 10,000 UNIT/10 ML VIAL IV PRN (14:38)
[2019-07-17] MEDS ORDERED: *HR* Heparin 5,000 UNIT/ML VIAL ONE (14:57)
--- NOTE | 2019-07-17 15:41 | IR Procedure Note ---
Date of procedure: 07/17/19 Consent Obtained: Verbal consent, Written consent Timeout: Correct patient and procedure verified, Correct site verified, Time out performed, Skin prep completed Local anesthetic: Lidocaine 1% Was there an assistant housekeeping manager present: No Estimated blood loss (cc): 4 Complications: None; Tolerated procedure well Procedure Performed: [facility]J permcath insertion Specimen: none
--- NOTE | 2019-07-17 16:02 | Physician Discharge Referral ---
- Diagnosis (1) Sepsis Priority: Primary Status: Acute (2) ESRD on dialysis Priority: Primary Status: Acute (3) Diabetes mellitus Priority: Primary Status: Acute (4) DVT prophylaxis Priority: Primary Status: Acute - Transfer Medications Prescriptions: Darbepoetin [Aranesp] 40 mcg SQ QWEEK #60 syringe Home Medications: Atorvastatin Calcium [Lipitor] 20 mg PO DAILY 07/12/19 [History] B Complex W-C No.20/Folic Acid [Virt-Caps Softgel] 1 mg PO MOWEFR 07/12/19 [History] Calcitriol [Rocaltrol] 0.25 mcg PO DAILY 07/12/19 [History] Glucagon,Human Recombinant [Glucagen] 1 mg IM ONCE PRN 07/12/19 [History] Insulin LISPRO [Humalog Kwikpen U-100] 0 unit SQ TIDWM PRN 07/12/19 [History] Levothyroxine [Synthroid] 50 mcg PO QAM 07/12/19 [History] Linaclotide [Linzess] 290 mcg PO DAILY 07/12/19 [History] Metoprolol Succinate [Toprol Xl] 25 mg PO DAILY 07/12/19 [History] Topiramate [Topamax] 25 mg PO Q12H 07/12/19 [History] Tramadol HCl [Ultram] 50 mg PO Q8H PRN 07/12/19 [History] amLODIPine [Norvasc] 5 mg PO DAILY 07/12/19 [History] Darbepoetin [Aranesp] 40 mcg SQ QWEEK #60 syringe 07/17/19 [Rx] Allergies/Adverse Reactions: Allergy/AdvReac Type Severity Reaction Status Date / Time No Known Allergies Allergy Verified 06/23/19 06:10 - Respiratory Orders Smoking Cessation: Smoking cessation has been advised. For more information, call the [place] Tobacco Quit Line at 9-157-XXZD-NOW. - Mobility Orders Ambulate CERTIFICATION: I certify that the transfer of the above named patient to an Extended Care Facility is necessary for the continuing treatment of the diagnosis listed. The above information is true and accurate reflection of patient's current condition. Confidential - Redisclosure prohibited without a patient's written consent.
[2019-07-17 18:41] VITALS: BP 144/85
== END 2019-07-16 19:15 | disposition home or self-care (01) | DRG 981 ==
LOC: EMEROOARM 16:33 → 2ANU 16:33 → SUATTDRO 21:13 → OBSVTOIN 21:13 → 2ANU 21:45
PROVIDERS: ADMIT Internal Medicine; ATTEND Internal Medicine
PROC: IRPERMA (2019-07-17 12:00)

== ENCOUNTER 2019-09-22 08:32 | Inpatient (IN) ==
[2019-09-22 09:38] LABS: INR 1.1; Prothrombin Time 12.6 Seconds (9.4-12.1)
[2019-09-22 09:38] LABS: Basophils % 0.5 %; Eosinophils # 0.2 K/mcL (0.0-0.6); Eosinophils % 2.9 %; Hematocrit 32.2 % (35.3-44.9); Hemoglobin 10.6 g/dL (11.5-15.4); Immature Granulocytes % 0.3 % (0-4); Lymphocytes # 1.7 K/mcL (0.6-4.6); Lymphocytes % 25.5 %; Mean Corpuscular HGB Conc 32.9 g/dL (31.6-35.5); Mean Corpuscular Hemoglobin 31.9 pg (28.0-33.3); Mean Platelet Volume 9.4 fL (9.4-12.4); Monocytes # 0.5 K/mcL (0.0-1.3); Monocytes % 7.7 %; Neutrophils # 4.2 K/mcL (1.6-8.9); Platelet Count 244 K/mcL (140-400); Red Blood Count 3.32 M/mcL (3.82-4.97); Red Cell Distribution Width 16.1 % (11.5-14.5); Segmented Neutrophils % 63.1 %; White Blood Count 6.6 K/mcL (4.3-11.1)
[2019-09-22 09:57] LABS: Calcium 8.4 mg/dL (8.6-10.3); Potassium 5.8 mEq/L (3.5-5.1)
[2019-09-22] MEDS ORDERED: Ondansetron 4 MG/2 ML VIAL IVP PRN (11:03)
[2019-09-22] MEDS ORDERED: 0.9 % Sodium Chloride 500 ML ONE (12:30)
[2019-09-22] MEDS ORDERED: Heparin 1,000 UNITS/500 mL 500 ML ONE (12:30)
[2019-09-22] MEDS ORDERED: *HR* Heparin 5,000 UNIT/ML VIAL ONE (13:18)
[2019-09-22] MEDS: ceFAZolin 2,000 MG in D5% in Water 100 ML IVPB ONE ×2 (13:36→19:21)
[2019-09-22] MEDS: ceFAZolin 2,000 MG in 0.9 % Sodium Chloride 100 ML IVPB ONE ×2 (13:36→14:42)
[2019-09-22] MEDS ORDERED: 0.9 % Sodium Chloride 1,000 ML ONE (14:38)
[2019-09-22] MEDS ORDERED: 0.9 % Sodium Chloride 250 ML IVC PRN (15:14)
[2019-09-22] MEDS ORDERED: *HR* Heparin 10,000 UNIT/10 ML VIAL IV PRN ×2 (15:14)
[2019-09-22] MEDS ORDERED: 0.9 % Sodium Chloride 1,000 ML PRIME SCH (15:15)
[2019-09-22] MEDS ORDERED: Nitroglycerin 0.4 MG TAB.SUBL SL PRN (15:32)
[2019-09-22] MEDS ORDERED: Mag Hydrox/Al Hydrox/Simeth 30 ML UDC PO PRN (15:32)
[2019-09-22] MEDS ORDERED: D5% in Water 1,000 ML IVC PRN (15:33)
[2019-09-22] MEDS ORDERED: Dextrose Gel 15 GM/37.5 ML TUBE PO PRN ×2 (15:33)
[2019-09-22] MEDS ORDERED: *HR* Dextrose 50 % in Water (Syg) 50 ML SYRINGE IVP PRN (15:33)
[2019-09-22 16:30] LABS: Hepatitis B Surface Antibody 30.53 mIU/mL
[2019-09-22 16:41] LABS: Hepatitis B Surface Antigen Nonreactive (Nonreactive)
[2019-09-22] MEDS: Topiramate 25 MG TABLET PO SCH (17:09)
[2019-09-22] MEDS: Calcium Acetate 667 MG CAPSULE PO SCH ×2 (17:13→21:20)
[2019-09-22] MEDS: Insulin LISPRO 300 UNITS/3 ML VIAL SQ SCH (17:14)
[2019-09-22] MEDS ORDERED: Acetaminophen 325 MG TABLET PO ONE (20:24)
[2019-09-23 04:49] LABS: Basophils % 0.6 %; Eosinophils # 0.1 K/mcL (0.0-0.6); Eosinophils % 2.5 %; Hematocrit 29.8 % (35.3-44.9); Hemoglobin 9.8 g/dL (11.5-15.4); Immature Granulocytes % 0.4 % (0-4); Lymphocytes # 1.5 K/mcL (0.6-4.6); Lymphocytes % 30.9 %; Mean Corpuscular HGB Conc 32.9 g/dL (31.6-35.5); Mean Corpuscular Hemoglobin 32.2 pg (28.0-33.3); Mean Platelet Volume 9.3 fL (9.4-12.4); Monocytes # 0.5 K/mcL (0.0-1.3); Neutrophils # 2.7 K/mcL (1.6-8.9); Platelet Count 170 K/mcL (140-400); Red Blood Count 3.04 M/mcL (3.82-4.97); Red Cell Distribution Width 16.3 % (11.5-14.5); Segmented Neutrophils % 55.6 %; White Blood Count 4.8 K/mcL (4.3-11.1)
[2019-09-23 04:56] LABS: Calcium 8.5 mg/dL (8.6-10.3); Potassium 4.4 mEq/L (3.5-5.1)
[2019-09-23] MEDS: Topiramate 25 MG TABLET PO SCH ×2 (06:41→17:06)
[2019-09-23] MEDS: Insulin LISPRO 300 UNITS/3 ML VIAL SQ SCH ×3 (08:50→15:53)
[2019-09-23] MEDS: amLODIPine 5 MG TABLET PO SCH (09:01)
[2019-09-23] MEDS: Calcium Acetate 667 MG CAPSULE PO SCH ×3 (09:01→15:53)
[2019-09-23] MEDS: Metoprolol XL (24 HR) Succ 25 MG TAB.ER.24H PO SCH (09:02)
[2019-09-23] MEDS ORDERED: Calcium Acetate 667 MG CAPSULE PO PRN (13:16)
[2019-09-23] MEDS ORDERED: Acetaminophen IV 500 MG/50 ML INFUS..BTL IVPB ONE (18:36)
[2019-09-24] MEDS: Topiramate 25 MG TABLET PO SCH ×2 (04:47→17:28)
[2019-09-24 05:08] LABS: Prothrombin Time 11.6 Seconds (9.4-12.1)
[2019-09-24 05:26] LABS: Calcium 8.5 mg/dL (8.6-10.3); Potassium 5.3 mEq/L (3.5-5.1)
[2019-09-24] MEDS ORDERED: 0.9 % Sodium Chloride 250 ML IVC PRN (08:16)
[2019-09-24] MEDS ORDERED: *HR* Heparin 10,000 UNIT/10 ML VIAL IV PRN ×2 (08:16)
[2019-09-24] MEDS ORDERED: 0.9 % Sodium Chloride 1,000 ML PRIME SCH (08:30)
[2019-09-24] MEDS: Insulin LISPRO 300 UNITS/3 ML VIAL SQ SCH ×3 (08:42→17:27)
[2019-09-24] MEDS: Calcium Acetate 667 MG CAPSULE PO SCH ×3 (08:43→17:28)
[2019-09-24] MEDS: Metoprolol XL (24 HR) Succ 25 MG TAB.ER.24H PO SCH (14:17)
[2019-09-24] MEDS: amLODIPine 5 MG TABLET PO SCH (14:17)
[2019-09-24] MEDS: Renal Vitamin 1 CAP CAPSULE PO SCH (18:54)
[2019-09-25] MEDS: Topiramate 25 MG TABLET PO SCH ×2 (05:44→17:35)
[2019-09-25] MEDS: Insulin LISPRO 300 UNITS/3 ML VIAL SQ SCH ×4 (08:02→23:00)
[2019-09-25] MEDS: Calcium Acetate 667 MG CAPSULE PO SCH ×3 (08:02→17:36)
[2019-09-25] MEDS: Metoprolol XL (24 HR) Succ 25 MG TAB.ER.24H PO SCH (08:09)
[2019-09-25] MEDS: amLODIPine 5 MG TABLET PO SCH (08:09)
[2019-09-25 08:12] LABS: Calcium 8.9 mg/dL (8.6-10.3); Potassium 4.7 mEq/L (3.5-5.1)
[2019-09-25] MEDS ORDERED: Vancomycin 500 MG in 0.9 % Sodium Chloride Mini Bag 100 ML IVPB ONE (20:00)
[2019-09-26] MEDS: Topiramate 25 MG TABLET PO SCH ×2 (05:56→16:45)
[2019-09-26] MEDS: Insulin LISPRO 300 UNITS/3 ML VIAL SQ SCH ×4 (07:45→20:47)
[2019-09-26] MEDS: Calcium Acetate 667 MG CAPSULE PO SCH ×3 (09:00→17:57)
[2019-09-26] MEDS ORDERED: 0.9 % Sodium Chloride 250 ML IVC PRN (10:27)
[2019-09-26] MEDS ORDERED: *HR* Heparin 10,000 UNIT/10 ML VIAL IV PRN (10:27)
[2019-09-26] MEDS ORDERED: 0.9 % Sodium Chloride 1,000 ML PRIME SCH (10:30)
[2019-09-26 14:51] LABS: Basophils % 0.6 %; Eosinophils # 0.2 K/mcL (0.0-0.6); Eosinophils % 2.4 %; Hematocrit 31.8 % (35.3-44.9); Hemoglobin 10.7 g/dL (11.5-15.4); Immature Granulocytes % 0.6 % (0-4); Lymphocytes # 1.5 K/mcL (0.6-4.6); Lymphocytes % 22.1 %; Mean Corpuscular HGB Conc 33.6 g/dL (31.6-35.5); Mean Corpuscular Hemoglobin 32.1 pg (28.0-33.3); Mean Corpuscular Volume 95.5 fL (83.0-100.0); Mean Platelet Volume 9.5 fL (9.4-12.4); Monocytes # 0.5 K/mcL (0.0-1.3); Monocytes % 7.5 %; Neutrophils # 4.5 K/mcL (1.6-8.9); Platelet Count 182 K/mcL (140-400); Red Blood Count 3.33 M/mcL (3.82-4.97); Segmented Neutrophils % 66.8 %; White Blood Count 6.7 K/mcL (4.3-11.1)
[2019-09-26] MEDS: amLODIPine 5 MG TABLET PO SCH (16:45)
[2019-09-26] MEDS: Metoprolol XL (24 HR) Succ 25 MG TAB.ER.24H PO SCH (16:45)
[2019-09-26] MEDS: Renal Vitamin 1 CAP CAPSULE PO SCH (17:57)
[2019-09-27 05:04] LABS: Basophils # 0.1 K/mcL (0.0-0.2); Basophils % 0.8 %; Eosinophils # 0.2 K/mcL (0.0-0.6); Eosinophils % 3.4 %; Hematocrit 33.4 % (35.3-44.9); Hemoglobin 11.2 g/dL (11.5-15.4); Immature Granulocytes % 0.3 % (0-4); Immature Platelets 1.3 % (1.1-6.1); Lymphocytes # 1.8 K/mcL (0.6-4.6); Mean Corpuscular HGB Conc 33.5 g/dL (31.6-35.5); Mean Corpuscular Hemoglobin 32.6 pg (28.0-33.3); Mean Corpuscular Volume 97.1 fL (83.0-100.0); Mean Platelet Volume 9.7 fL (9.4-12.4); Monocytes # 0.6 K/mcL (0.0-1.3); Monocytes % 9.3 %; Neutrophils # 3.8 K/mcL (1.6-8.9); Platelet Count 170 K/mcL (140-400); Red Blood Count 3.44 M/mcL (3.82-4.97); Red Cell Distribution Width 16.2 % (11.5-14.5); Segmented Neutrophils % 59.2 %; White Blood Count 6.5 K/mcL (4.3-11.1)
[2019-09-27 05:29] LABS: Potassium 4.5 mEq/L (3.5-5.1)
[2019-09-27] MEDS: Topiramate 25 MG TABLET PO SCH ×2 (06:09→16:44)
[2019-09-27] MEDS: Metoprolol XL (24 HR) Succ 25 MG TAB.ER.24H PO SCH (08:10)
[2019-09-27] MEDS: Calcium Acetate 667 MG CAPSULE PO SCH ×3 (08:10→16:44)
[2019-09-27] MEDS: amLODIPine 5 MG TABLET PO SCH (08:10)
[2019-09-27] MEDS: Insulin LISPRO 300 UNITS/3 ML VIAL SQ SCH ×4 (08:10→20:36)
[2019-09-28] MEDS: Topiramate 25 MG TABLET PO SCH ×2 (05:41→17:35)
[2019-09-28 06:14] LABS: Basophils % 0.6 %; Eosinophils # 0.2 K/mcL (0.0-0.6); Eosinophils % 2.9 %; Hematocrit 31.5 % (35.3-44.9); Hemoglobin 10.8 g/dL (11.5-15.4); Lymphocytes # 2.1 K/mcL (0.6-4.6); Lymphocytes % 30.8 %; Mean Corpuscular HGB Conc 34.3 g/dL (31.6-35.5); Mean Corpuscular Hemoglobin 32.7 pg (28.0-33.3); Mean Corpuscular Volume 95.5 fL (83.0-100.0); Mean Platelet Volume 10.4 fL (9.4-12.4); Monocytes # 0.6 K/mcL (0.0-1.3); Monocytes % 9.3 %; Neutrophils # 3.6 K/mcL (1.6-8.9); Platelet Count 180 K/mcL (140-400); Red Cell Distribution Width 15.9 % (11.5-14.5); Segmented Neutrophils % 53.4 %; White Blood Count 6.7 K/mcL (4.3-11.1)
[2019-09-28 06:25] LABS: Calcium 8.4 mg/dL (8.6-10.3); Potassium 5.6 mEq/L (3.5-5.1)
[2019-09-28] MEDS: Metoprolol XL (24 HR) Succ 25 MG TAB.ER.24H PO SCH (08:35)
[2019-09-28] MEDS: Calcium Acetate 667 MG CAPSULE PO SCH ×3 (08:35→17:35)
[2019-09-28] MEDS: amLODIPine 5 MG TABLET PO SCH (08:35)
[2019-09-28] MEDS: Insulin LISPRO 300 UNITS/3 ML VIAL SQ SCH ×4 (08:35→22:04)
[2019-09-28] MEDS ORDERED: *HR* HYDROmorphone 2 MG/ML SYRINGE IVP ONE (11:54)
[2019-09-28] MEDS: Saline Nasal Spray 44 ML BOTTLE NS PRN (22:56)
[2019-09-29] MEDS ORDERED: *HR* Heparin 10,000 UNIT/10 ML VIAL IV PRN (05:04)
[2019-09-29] MEDS ORDERED: 0.9 % Sodium Chloride 250 ML IVC PRN (05:04)
[2019-09-29] MEDS ORDERED: 0.9 % Sodium Chloride 1,000 ML PRIME SCH (05:15)
[2019-09-29] MEDS: Topiramate 25 MG TABLET PO SCH ×2 (05:41→17:22)
[2019-09-29 06:26] LABS: Basophils % 0.6 %; Eosinophils # 0.2 K/mcL (0.0-0.6); Eosinophils % 3.6 %; Hematocrit 32.3 % (35.3-44.9); Hemoglobin 10.8 g/dL (11.5-15.4); Immature Granulocytes % 0.2 % (0-4); Lymphocytes # 1.5 K/mcL (0.6-4.6); Lymphocytes % 29.3 %; Mean Corpuscular HGB Conc 33.4 g/dL (31.6-35.5); Mean Corpuscular Hemoglobin 32.3 pg (28.0-33.3); Mean Corpuscular Volume 96.7 fL (83.0-100.0); Mean Platelet Volume 9.4 fL (9.4-12.4); Monocytes # 0.5 K/mcL (0.0-1.3); Monocytes % 9.2 %; Platelet Count 176 K/mcL (140-400); Red Blood Count 3.34 M/mcL (3.82-4.97); Red Cell Distribution Width 15.9 % (11.5-14.5); Segmented Neutrophils % 57.1 %; White Blood Count 5.2 K/mcL (4.3-11.1)
[2019-09-29 06:45] LABS: Calcium 8.5 mg/dL (8.6-10.3)
[2019-09-29] MEDS: Insulin LISPRO 300 UNITS/3 ML VIAL SQ SCH ×4 (07:46→21:54)
[2019-09-29] MEDS: amLODIPine 5 MG TABLET PO SCH (08:22)
[2019-09-29] MEDS: Calcium Acetate 667 MG CAPSULE PO SCH ×3 (08:22→17:22)
[2019-09-29] MEDS: Metoprolol XL (24 HR) Succ 25 MG TAB.ER.24H PO SCH (08:22)
[2019-09-29] MEDS ORDERED: Heparin 1,000 UNITS/500 mL 500 ML ONE (14:52)
[2019-09-29] MEDS ORDERED: Vancomycin 500 MG in 0.9 % Sodium Chloride Mini Bag 100 ML IVPB ONE (15:00)
[2019-09-29] MEDS ORDERED: 0.9 % Sodium Chloride 500 ML ONE (15:34)
[2019-09-29] MEDS ORDERED: *HR* FentaNYL (PF) 100 MCG/2 ML VIAL IVP ONE (15:39)
[2019-09-29] MEDS ORDERED: *HR* FentaNYL (PF) 100 MCG/2 ML VIAL ONE (15:39)
[2019-09-29] MEDS ORDERED: *HR* Heparin 5,000 UNIT/ML VIAL ONE (15:48)
[2019-09-29] MEDS: Saline Nasal Spray 44 ML BOTTLE NS PRN (17:21)
[2019-09-29] MEDS: Renal Vitamin 1 CAP CAPSULE PO SCH (17:22)
[2019-09-30] MEDS: Topiramate 25 MG TABLET PO SCH (05:38)
[2019-09-30 06:31] LABS: Basophils # 0.1 K/mcL (0.0-0.2); Basophils % 0.9 %; Eosinophils # 0.2 K/mcL (0.0-0.6); Eosinophils % 2.8 %; Hematocrit 31.6 % (35.3-44.9); Hemoglobin 10.4 g/dL (11.5-15.4); Immature Granulocytes % 0.2 % (0-4); Lymphocytes # 1.4 K/mcL (0.6-4.6); Lymphocytes % 24.5 %; Mean Corpuscular HGB Conc 32.9 g/dL (31.6-35.5); Mean Corpuscular Hemoglobin 32.6 pg (28.0-33.3); Mean Corpuscular Volume 99.1 fL (83.0-100.0); Mean Platelet Volume 9.9 fL (9.4-12.4); Monocytes # 0.6 K/mcL (0.0-1.3); Monocytes % 10.7 %; Neutrophils # 3.4 K/mcL (1.6-8.9); Platelet Count 134 K/mcL (140-400); Red Blood Count 3.19 M/mcL (3.82-4.97); Red Cell Distribution Width 15.6 % (11.5-14.5); Segmented Neutrophils % 60.9 %; White Blood Count 5.6 K/mcL (4.3-11.1)
[2019-09-30 07:00] LABS: Calcium 8.5 mg/dL (8.6-10.3)
[2019-09-30] MEDS: Insulin LISPRO 300 UNITS/3 ML VIAL SQ SCH ×2 (07:19→12:27)
[2019-09-30] MEDS: amLODIPine 5 MG TABLET PO SCH (08:19)
[2019-09-30] MEDS: Calcium Acetate 667 MG CAPSULE PO SCH ×2 (08:19→12:07)
[2019-09-30] MEDS: Metoprolol XL (24 HR) Succ 25 MG TAB.ER.24H PO SCH (08:19)
[2019-09-30] MEDS ORDERED: *HR* Heparin 10,000 UNIT/10 ML VIAL IV PRN (09:03)
[2019-09-30] MEDS ORDERED: 0.9 % Sodium Chloride 250 ML IVC PRN (09:03)
[2019-09-30] MEDS ORDERED: 0.9 % Sodium Chloride 1,000 ML PRIME SCH (09:15)
[2019-09-30 14:06] VITALS: BP 108/69
[2019-09-30] MEDS ORDERED: Aminoglycoside Consult 1 EACH MC ONE (17:15)
== END 2019-09-30 17:16 | DRG 314 ==
LOC: CDU 08:32 → EMEROOARM 08:32 → SUATTDRO 10:51 → CDU 10:58 → SUATTDRO 09-23 13:31 → 2ANU 09-23 13:50
PROVIDERS: ADMIT Internal Medicine; ATTEND Student in an Organized Health Care Education/Training Program

== ENCOUNTER 2020-01-12 10:58 | Inpatient (IN) ==
[2020-01-12] MEDS ORDERED: Aspirin 81 MG TAB.CHEW PO ONE (11:05)
[2020-01-12] MEDS ORDERED: Nitroglycerin 0.4 MG TAB.SUBL SL PRN ×2 (11:05→14:24)
[2020-01-12 11:27] LABS: Basophils % 0.5 %; Eosinophils # 0.2 K/mcL (0.0-0.6); Eosinophils % 1.7 %; Hematocrit 38.8 % (35.3-44.9); Hemoglobin 12.5 g/dL (11.5-15.4); Immature Granulocytes % 0.3 % (0-4); Lymphocytes # 1.6 K/mcL (0.6-4.6); Lymphocytes % 18.6 %; Mean Corpuscular HGB Conc 32.2 g/dL (31.6-35.5); Mean Corpuscular Hemoglobin 31.7 pg (28.0-33.3); Mean Corpuscular Volume 98.5 fL (83.0-100.0); Mean Platelet Volume 10.4 fL (9.4-12.4); Monocytes # 0.6 K/mcL (0.0-1.3); Monocytes % 6.9 %; Neutrophils # 6.2 K/mcL (1.6-8.9); Platelet Count 178 K/mcL (140-400); Red Blood Count 3.94 M/mcL (3.82-4.97); White Blood Count 8.6 K/mcL (4.3-11.1)
[2020-01-12] MEDS ORDERED: Isovue-370 500 ML BOTTLE IVP ONE (11:33)
[2020-01-12 11:48] LABS: BUN/Creatinine Ratio 5 (6-26); Blood Urea Nitrogen 39 mg/dL (8-23); Calcium 9.9 mg/dL (8.6-10.3); Carbon Dioxide 27 mEq/L (23-29); Chloride 95 mEq/L (98-107); Glucose 203 mg/dL (70-105); Magnesium 2.1 mg/dL (1.6-2.6); Osmolality,Calculated 297 (280-300); Potassium 3.9 mEq/L (3.5-5.1); Sodium 136 mEq/L (136-145); eGFR For African Americans 6 (> 60); eGFR For Non-African Americans 5 (> 60)
[2020-01-12 11:49] LABS: Troponin I < 0.03 ng/mL (< 0.04)
[2020-01-12] MEDS ORDERED: *HR* OxyCODONE/APAP 5/325 TABLET PO PRN (14:24)
[2020-01-12] MEDS ORDERED: Acetaminophen 325 MG TABLET PO PRN (14:24)
[2020-01-12] MEDS ORDERED: Sennosides 8.6 MG TABLET PO PRN (14:24)
[2020-01-12] MEDS ORDERED: NON-FORMULARY MEDICATION 1 EACH EACH (Glucagon,Human Recombinant [Glucagen] 1 MG) IM PRN (14:24)
[2020-01-12] MEDS ORDERED: Mag Hydrox/Al Hydrox/Simeth 30 ML UDC PO PRN (14:24)
[2020-01-12] MEDS ORDERED: MOM Conc 10 ML UD.LIQ PO PRN (14:24)
[2020-01-12] MEDS ORDERED: LINACLOTIDE PO PRN (14:24)
[2020-01-12] MEDS ORDERED: Naloxone 0.4 MG/ML INJ IVP PRN (14:27)
[2020-01-12] MEDS ORDERED: *HR* Promethazine 25 MG/ML VIAL IVP PRN (14:27)
[2020-01-12] MEDS ORDERED: Ondansetron 4 MG/2 ML VIAL IVP PRN (14:27)
[2020-01-12] MEDS ORDERED: D5% in Water 1,000 ML IVC PRN (14:31)
[2020-01-12] MEDS ORDERED: Dextrose Gel 15 GM/37.5 ML TUBE PO PRN ×2 (14:31)
[2020-01-12] MEDS ORDERED: *HR* Dextrose 50 % in Water (Syg) 50 ML SYRINGE IVP PRN (14:31)
[2020-01-12] MEDS: Topiramate 25 MG TABLET PO SCH (17:47)
[2020-01-12] MEDS: Calcium Acetate 667 MG CAPSULE PO SCH ×2 (17:47→20:57)
[2020-01-12] MEDS: Insulin LISPRO 300 UNITS/3 ML VIAL SQ SCH ×2 (17:48→20:59)
[2020-01-12] MEDS: *HR* Heparin 5,000 UNIT/ML VIAL SQ SCH (17:48)
[2020-01-13] MEDS: Topiramate 25 MG TABLET PO SCH ×2 (03:08→15:00)
[2020-01-13 05:05] LABS: Mean Corpuscular Volume 104.3 fL (83.0-100.0)
[2020-01-13 05:08] LABS: Basophils % 0.6 %; Eosinophils # 0.2 K/mcL (0.0-0.6); Eosinophils % 2.8 %; Hematocrit 38.8 % (35.3-44.9); Immature Granulocytes % 0.3 % (0-4); Immature Platelets 1.5 % (1.1-6.1); Lymphocytes # 1.9 K/mcL (0.6-4.6); Mean Corpuscular HGB Conc 30.9 g/dL (31.6-35.5); Mean Corpuscular Hemoglobin 32.3 pg (28.0-33.3); Mean Platelet Volume 10.6 fL (9.4-12.4); Monocytes # 0.6 K/mcL (0.0-1.3); Monocytes % 9.7 %; Platelet Count 150 K/mcL (140-400); Red Blood Count 3.72 M/mcL (3.82-4.97); Red Cell Distribution Width 16.5 % (11.5-14.5); Segmented Neutrophils % 55.6 %; White Blood Count 6.2 K/mcL (4.3-11.1)
[2020-01-13] MEDS: *HR* Heparin 5,000 UNIT/ML VIAL SQ SCH ×2 (05:43→16:51)
[2020-01-13 05:49] LABS: Neutrophils # 3.5 K/mcL (1.6-8.9)
[2020-01-13 05:50] LABS: Platelet Estimate Decreased (Normal)
[2020-01-13] MEDS ORDERED: Regadenoson 0.4 MG/5 ML SYRINGE IVP ONE (06:03)
[2020-01-13 08:07] LABS: Calcium 9.6 mg/dL (8.6-10.3); Chol/HDL Ratio 3.9 (0-4.9); Magnesium 2.2 mg/dL (1.6-2.6); Phosphorous 7.8 mg/dL (2.7-4.5); Potassium 5.1 mEq/L (3.5-5.1)
[2020-01-13] MEDS: Insulin LISPRO 300 UNITS/3 ML VIAL SQ SCH ×4 (09:29→19:55)
[2020-01-13] MEDS ORDERED: 0.9 % Sodium Chloride 250 ML IVC PRN (09:57)
[2020-01-13] MEDS ORDERED: 0.9 % Sodium Chloride 1,000 ML PRIME SCH (10:00)
[2020-01-13] MEDS: Calcium Acetate 667 MG CAPSULE PO SCH ×4 (10:05→19:55)
[2020-01-13] MEDS: Aspirin Enteric Coated 81 MG Tablet PO SCH (10:05)
[2020-01-13] MEDS: Cholecalciferol (D-3) 1,000 UNIT (25MCG) TABLET PO SCH (10:05)
[2020-01-13] MEDS ORDERED: *HR* Heparin 10,000 UNIT/10 ML VIAL IV PRN (12:14)
[2020-01-13] MEDS: Sennosides 8.6 MG TABLET PO SCH (15:00)
[2020-01-13 17:54] LABS: Calcium 10.3 mg/dL (8.6-10.3); Potassium 4.3 mEq/L (3.5-5.1)
[2020-01-14] MEDS: Topiramate 25 MG TABLET PO SCH ×2 (03:21→17:17)
[2020-01-14] MEDS: *HR* Heparin 5,000 UNIT/ML VIAL SQ SCH ×2 (03:23→17:18)
[2020-01-14 05:58] LABS: Calcium 9.9 mg/dL (8.6-10.3); Phosphorous 8.1 mg/dL (2.7-4.5); Potassium 4.9 mEq/L (3.5-5.1)
[2020-01-14] MEDS ORDERED: 0.9 % Sodium Chloride 250 ML IVC PRN (07:18)
[2020-01-14] MEDS: Calcium Acetate 667 MG CAPSULE PO SCH ×3 (08:28→17:24)
[2020-01-14] MEDS: Aspirin Enteric Coated 81 MG Tablet PO SCH (08:29)
[2020-01-14] MEDS: Cholecalciferol (D-3) 1,000 UNIT (25MCG) TABLET PO SCH (08:29)
[2020-01-14] MEDS: Insulin LISPRO 300 UNITS/3 ML VIAL SQ SCH ×2 (08:30→17:22)
[2020-01-14] MEDS ORDERED: Renal Vitamin 1 CAP CAPSULE PO SCH ×2 (09:00→12:56)
[2020-01-14] MEDS: Sennosides 8.6 MG TABLET PO SCH (11:45)
[2020-01-14] MEDS ORDERED: *HR* Heparin 10,000 UNIT/10 ML VIAL ONE (15:50)
[2020-01-14 18:10] VITALS: BP 92/57
[2020-01-14 18:26] LABS: Potassium 4.3 mEq/L (3.5-5.1)
== END 2020-01-14 19:30 ==
LOC: 3BNU 10:58 → EMEROOARM 10:58 → 3BNU 15:32
PROVIDERS: ADMIT Internal Medicine; ATTEND Internal Medicine